=== PATIENT | female | born 1945 | race Caucasian/White ===

== ENCOUNTER → 2016-04-11 | Outpatient (CLI) | payer OTHER ==
[2016-04-11 12:59] LABS: ALT/SGPT 26 U/L (12-78); BLOOD UREA NITROGEN 18 mg/dl (7-18); BUN/CREATININE RATIO 21.9 (10-20); CALCIUM 9.4 mg/dl (8.5-10.1); CARBON DIOXIDE 27 mmol/L (21-32); CHLORIDE 106 mmol/L (98-107); CHOLESTEROL 264 mg/dl (0-200); CREATININE 0.84 mg/dl (0.60-1.20); GLUCOSE 109 mg/dl (70-99); SODIUM 143 mmol/L (136-145); TRIGLYCERIDES 140 mg/dl (0-150); VERY LOW DENSITY LIPOPROT CALC 28 mg/dl
[2016-04-11 13:04] LABS: ALKALINE PHOSPHATASE 62 U/L (45-117); AST/SGOT 18 U/L (15-37); CHOLESTEROL/HDL RATIO 3.9; HDL CHOLESTEROL 67 mg/dl; LDL CHOLESTEROL CALCULATED 169 mg/dl
--- NOTE | 2016-04-16 10:28 | CODING QUERY MEDICAL NECESSITY ---
SUPPORTING DIAGNOSIS NEEDED A supporting diagnosis is required for the test/procedure performed on this patient in order for us to be reimbursed by the patient's insurance. Please provide a supporting diagnosis for the following test/procedure listed below next to the test name along with your signature. *If there is no additional diagnosis for this patient that would support the following test/procedure please document that below next to the test/procedure. Test(s)/Procedure(s) that require a supporting diagnosis: * VITAMIN D 25-HYDROXY DIAGNOSIS: * DOS: 04/11/16 Provider Signature: Date: Thank you Selina Sutton Health Information Management Once completed, please kindly fax back to [phone] For questions please call [phone]
== END | disposition home or self-care (01) ==
LOC: C.LABPVFM 08:01
PROVIDERS: ATTEND Family Medicine
DX: E78.5 Hyperlipidemia, unspecified (principal); R73.01 Impaired fasting glucose; R03.0 Elevated blood-pressure reading, without diagnosis of hypertension; M25.50 Pain in unspecified joint; Z13.21 Encounter for screening for nutritional disorder; E55.9 Vitamin D deficiency, unspecified

== ENCOUNTER → 2016-07-15 | Outpatient (CLI) | payer OTHER ==
[2016-07-15 18:07] LABS: BLOOD UREA NITROGEN 18 mg/dl (7-18); CREATININE 0.86 mg/dl (0.60-1.20)
[2016-07-16 06:17] LABS: ESTIMATED AVERAGE GLUCOSE 128 mg/dl; HA1C FLAG Normal (Normal)
== END | disposition home or self-care (01) ==
LOC: C.LABPVFM 16:00
PROVIDERS: ATTEND Family Medicine
DX: H91.8X1 Other specified hearing loss, right ear (principal); R73.9 Hyperglycemia, unspecified

== ENCOUNTER → 2016-07-24 | Outpatient (CLI) | payer OTHER ==
[~2016-07-24] MED LIST: GADAVIST IV PRN
--- NOTE | 2016-07-24 14:19 | DIAGNOSTIC IMAGING REPORT ---
Brain and internal auditory canal MRI WITH AND WITHOUT CONTRAST HISTORY: WITH IAC, ASYMMETRICAL HEARING LOSS OF R EAR TECHNIQUE: Multiplanar multisequence MRI of the brain and internal auditory canals were performed both before and after the intravenous administration of contrast. COMPARISON STUDY: None. FINDINGS: There is no mass, hematoma, midline shift, or acute infarct. Small retention cyst within the left maxillary sinus. The ventricles and sulci demonstrate mild age-related involutional changes. Scattered foci of T2 hyperintensity seen within the periventricular and subcortical white matter are nonspecific but suggestive of mild microvascular ischemic changes. The major vascular flow voids at the skull base are well-maintained. No abnormal enhancement or masses within the bilateral internal auditory canals. Small amount fluid within the bilateral mastoid air cells. The middle ear cavities appear patent. IMPRESSION: 1. No acute intracranial abnormality. 2. Normal bilateral internal auditory canals. 3. Small bilateral mastoid effusions. Electronically signed by: Angel Horne M.D. 07/24/2016 2:17 PM Dictated Date/Time: 07/24/2016 2:09 PM
== END | disposition home or self-care (01) ==
LOC: C.OPENMRI 12:41
PROVIDERS: ATTEND Physician Assistant
DX: H91.91 Unspecified hearing loss, right ear (principal)

== ENCOUNTER → 2016-11-06 | Outpatient (CLI) | payer OTHER ==
[2016-11-06 13:10] LABS: ALT/SGPT 35 U/L (12-78); AST/SGOT 31 U/L (15-37); BLOOD UREA NITROGEN 10 mg/dl (7-18); BUN/CREATININE RATIO 13.2 (10-20); CALCIUM 9.1 mg/dl (8.5-10.1); CARBON DIOXIDE 25 mmol/L (21-32); CHLORIDE 108 mmol/L (98-107); CREATININE 0.79 mg/dl (0.60-1.20); GLUCOSE 98 mg/dl (70-99); POTASSIUM 3.8 mmol/L (3.5-5.1); SODIUM 140 mmol/L (136-145)
[2016-11-06 13:11] LABS: ALB/GLOB RATIO 1.2 (0.9-2); ALKALINE PHOSPHATASE 60 U/L (45-117); CHOLESTEROL 201 mg/dl (0-200); CHOLESTEROL/HDL RATIO 3.1; HDL CHOLESTEROL 64 mg/dl; LDL CHOLESTEROL CALCULATED 121 mg/dl; TRIGLYCERIDES 81 mg/dl (0-150); VERY LOW DENSITY LIPOPROT CALC 16 mg/dl
== END | disposition home or self-care (01) ==
LOC: C.LABPVFM 07:34
PROVIDERS: ATTEND Family Medicine
DX: E78.5 Hyperlipidemia, unspecified (principal); R73.9 Hyperglycemia, unspecified

== ENCOUNTER → 2016-12-05 | Outpatient (CLI) | payer OTHER | END | disposition home or self-care (01) | LOC: C.PAPS 13:31 | PROVIDERS: ATTEND Family Medicine | DX: Z12.4 Encounter for screening for malignant neoplasm of cervix (principal) ==

== ENCOUNTER → 2017-02-28 | Outpatient (CLI) | payer OTHER ==
--- NOTE | 2017-02-28 16:44 | DIAGNOSTIC IMAGING REPORT ---
MRI THE RIGHT KNEE NO CONTRAST CLINICAL HISTORY: RIGHT KNEE PAIN COMPARISON STUDY: No previous studies for comparison. FINDINGS: Imaging was performed in the sagittal, coronal, and axial planes. There is a moderate suprapatellar joint effusion. There is anterior subcutaneous edema. The anterior and posterior cruciate ligaments appear intact. The medial and lateral collateral ligaments appear intact. The patellar retinacular structures appear intact. No tears of the lateral meniscus are visualized. There is medial extrusion of the medial meniscus. There is a complex tear involving the posterior horn of the medial meniscus. There is a medial meniscal cyst. There is chondrosis involving the medial joint compartment. There is mild chondromalacia patella. IMPRESSION: 1. Moderate suprapatellar joint effusion 2. Complex tear involving the posterior horn the medial meniscus 3. Chondrosis involving the medial joint compartment 4. No evidence of cruciate or collateral ligament disruption Electronically signed by: Devendra Fisher M.D. 02/28/2017 4:42 PM Dictated Date/Time: 02/28/2017 4:37 PM
== END | disposition home or self-care (01) ==
LOC: C.MRIBC 15:40
PROVIDERS: ATTEND Orthopaedic Surgery
DX: M25.561 Pain in right knee (principal); M25.461 Effusion, right knee; S83.231A Complex tear of medial meniscus, current injury, right knee, initial encounter; X58.XXXA Exposure to other specified factors, initial encounter; M94.261 Chondromalacia, right knee

== ENCOUNTER → 2017-06-03 | Outpatient (CLI) | payer OTHER ==
[2017-06-03 14:27] LABS: ALBUMIN 3.7 gm/dl (3.4-5.0); ALT/SGPT 27 U/L (12-78); BLOOD UREA NITROGEN 22 mg/dl (7-18); CALCIUM 9.3 mg/dl (8.5-10.1); CARBON DIOXIDE 28 mmol/L (21-32); CHOLESTEROL 186 mg/dl (0-200); GLUCOSE 101 mg/dl (70-99); POTASSIUM 3.9 mmol/L (3.5-5.1); SODIUM 140 mmol/L (136-145)
[2017-06-03 14:30] LABS: ALKALINE PHOSPHATASE 67 U/L (45-117); AST/SGOT 18 U/L (15-37); LDL CHOLESTEROL CALCULATED 99 mg/dl; TOTAL PROTEIN 6.9 gm/dl (6.4-8.2)
== END | disposition home or self-care (01) ==
LOC: C.LABPVFM 07:29
PROVIDERS: ATTEND Family Medicine
DX: E78.5 Hyperlipidemia, unspecified (principal); R73.01 Impaired fasting glucose; E55.9 Vitamin D deficiency, unspecified

== ENCOUNTER → 2017-06-24 | Outpatient (CLI) | payer OTHER ==
[~2017-06-24] MED LIST changes: +CHOL20009 PO; +FEXO1TAB49 PO; -GADAVIST IV PRN; +SIMV10TA2 PO
--- NOTE | 2017-06-25 15:45 | MAMMOGRAPHY REPORT ---
BILATERAL DIGITAL SCREENING MAMMOGRAM TOMOSYNTHESIS WITH CAD: 06/24/2017 CLINICAL HISTORY: Routine screening. Patient has no complaints. TECHNIQUE: Breast tomosynthesis in addition to standard 2D mammography was performed. Current study was also evaluated with a Computer Aided Detection (CAD) system. COMPARISON: Comparison is made to exams dated: 03/20/2015 mammogram, 03/18/2014 mammogram, 03/17/2013 m ammogram, 03/13/2012 mammogram, 03/08/2011 mammogram, and 03/07/2010 mammogram - [facility] enter. BREAST COMPOSITION: There are scattered areas of fibroglandular density in both breasts. FINDINGS: There are benign vascular calcifications in both breasts. No suspicious mass, architectur al distortion or cluster of microcalcifications is seen. IMPRESSION: ACR BI-RADS CATEGORY 2: BENIGN There is no mammographic evidence of malignancy. A 1 year screening mammogram is recommended. The pa tient will receive written notification of the results. Approximately 10% of breast cancers are not detected with mammography. A negative mammographic report should not delay biopsy if a clinically suggestive mass is present. Sylvia Perez M.D. ay/:06/24/2017 16:19:43 Bilingual Customer Service Specialist: Saida Benson, [facility] letter sent: Normal 1/2 BI-RADS Code: ACR BI-RADS Category 2: Benign
== END | disposition home or self-care (01) ==
LOC: C.MAMM 14:30
PROVIDERS: ATTEND Family Medicine
DX: Z12.31 Encounter for screening mammogram for malignant neoplasm of breast (principal)

== ENCOUNTER → 2017-07-03 | Day surgery (SDC) | payer OTHER ==
[2017-06-24 08:34] VITALS: Ht 160 cm; Wt 72.7 kg
[~2017-07-03] VITALS: Ht 160 cm; Wt 72.7 kg
[~2017-07-03] MED LIST changes: +ATROPINE SULFATE 0.1 MG/ML 5ML SYR IV PRN; +CEFAZOLIN 2000MG IV PUSH 15 ML IV SCH; +DEXAMETHASONE SOD INJ 4 MG/ML VIAL ONE; +EpHEDrine SULFATE INJ 50 MG/ML AMP IV PRN; +EpINEphrine INJ 1MG/ML AMP 1 MG/ML AMP ONE; +FENTANYL CITRATE INJ 50 MCG/1 ML 2 ML VIAL ONE; +HYDR-5688 PO; +HYDROCODONE/ACETAMIN 5/325MG TAB PO PRN; +KETOROLAC TROMETHAMINE 30 MG/ML VIAL ONE; +LABETALOL HCL IV 5 MG/ML 20ML ONE; +LIDOCAINE HCL 2% 2 ML VIAL (20MG/ML) ONE; +ONDANSETRON INJ 2 MG/ML 2 ML VIAL IV PRN; +ONDANSETRON INJ 2 MG/ML 2 ML VIAL ONE; +PROPOFOL IV EMULSION 10 MG/ML 20 ML VIAL ONE; +ROPIVACAINE 0.5% 5 MG/ML 30 ML VIAL ONE; +SODIUM CHLORIDE 0.9% 1000ML 1,000 ML IV SCH
[2017-07-03] MEDS: LACTATED RINGER'S 1000ML 1,000 ML IV SCH ×2 (12:13→14:43)
--- NOTE | 2017-07-03 12:27 | History & Physical Bridge - [place] ---
H&P Re-Evaluation Bridge Note: I have examined the patient, reviewed the History & Physical and in the interval since the performance of the History & Physical I have noted the following changes of clinical significance: No changes noted
--- NOTE | 2017-07-03 13:55 | Discharge Instructions-SurgCtr ---
Discharge Instructions Date of Service July 03, 2017. Visit Reason for Visit: Right Knee Osteoarthritis, Pain Discharge Discharge Diagnosis / Problem: SAME ABOVE Discharge Goals Goal(s): Decrease discomfort, Improve function Medications Stopped Medications Name(s): No NSAIDs Activity Recommendations Activity Limitations: as noted below Lifting Limitations: gradually increase as tolerated Exercise/Sports Limitations: gradually increase as tolerated Shower/Bathe: tomorrow Anesthesia . Post Anesthesia Instructions: If you have had General Anesthesia or IV Sedation: * Do not drive today. * Resume driving when surgeon permits. * Do not make important decisions or sign legal documents today. * Call surgeon for: 1. Temperature elevations greater than 101 degrees F. 2. Uncontrollable pain. 3. Excessive bleeding. 4. Persistent nausea and vomiting. 5. Medication intolerance (nausea, vomiting or rash). * For nausea and vomiting use only clear liquids such as: tea, soda, bouillon until nausea subsides, then gradually increase diet as tolerated. * If you have any concerns or questions, call your surgeon's office. If physician is unavailable and it is an emergency, call 911 or go to the nearest emergency room. . Instructions / Follow-Up Instructions / Follow-Up MEDICATIONS: * Resume previous medications unless instructed otherwise by your surgeon. * Always take pain medication on a full stomach or with food to avoid upset stomach. * Do not drink alcohol or drive while taking narcotics. * Ibuprofen or Tylenol may be taken if narcotic not needed. SPECIAL CARE INSTRUCTIONS: __ None _X_ Keep extremity elevated and iced x 48 hours; apply ice 20-30 minutes 8-10 times/day. May remove at night. _X_ Crutches _X_ May discard when able __ Brace/Post-op shoe __ 24 hrs/day __ Remove at night _X_ Dressing __ Maintain until seen in office, may shower with plastic over site _X_ Remove dressings in 24-48 hours and then may shower _X Cover incisions with band-aids after showering __ Do not remove steri-strips Call physician if chills or temperature rises above 102 degrees or pain unrelieved by prescribed pain medications. Office [phone] Diet Recommendations Home Diet: no limitations Fluid Restriction: None Pending Studies Studies pending at discharge: no Medical Emergencies . Who to Call and When: Medical Emergencies: If at any time you feel your situation is an emergency, please call 911 immediately. . Non-Emergent Contact Non-Emergency issues call your: Primary Care Provider Call Non-Emergent contact if: you have a fever, temperature is above 101.5 . . "Provider Documentation" section prepared by Maurisio March. .
--- NOTE | 2017-07-03 14:20 | [facility] Post Operative Brief Note ---
Immediate Operative Summary Operative Date July 03, 2017. Pre-Operative Diagnosis Right Knee Chondromalacia and Meniscus Tear Post-Operative Diagnosis Same Procedure(s) Performed Right Knee Arthroscopy With Partial Medial Meniscectomy, Chondroplasty Surgeon Dr. Christy Aldana Circular Knitter Helper Surgeon(s) Mathew March Estimated Blood Loss 5 cc Findings Consistent with Post-Op Diagnosis Specimens None Anesthesia Type General Complication(s) none Disposition Disposition: Recovery Room / PACU
--- NOTE | 2017-07-03 14:42 | OPERATIVE REPORT ---
DATE OF OPERATION: 07/03/2017 PREOPERATIVE DIAGNOSIS: Medial meniscus tear of the right knee with chondromalacia. 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 PROCEDURE: Right knee diagnostic arthroscopy with chondroplasty and partial medial meniscectomy. SURGEON: Dr. Mitchell Aldana. TUBE AND MANIFOLD BUILDER: Maurisio March PA-C, whose assistance was necessary for positioning of the knee and helping with instrumentation. ANESTHESIA: General. COMPLICATIONS: None. CONDITION: Stable to PACU. INDICATIONS: Narda is a pleasant 71-year-old female who has been having a 5-month history of right knee pain. X-rays and MRI were diagnostic for medial meniscus tear of the knee with some mild chondromalacia. After failing conservative treatment, she elected to undergo arthroscopy. OPERATION AND FINDINGS: On 07/03/2017, she arrived at [facility] for the above procedure. She was seen in the preoperative holding area and the operative extremity was identified and signed. She was given a preoperative antibiotic, taken back to the operating room, laid on table in supine position and put under general anesthesia. The right knee was prepped and draped in sterile fashion. Time-out was done. The patient and operative extremity was properly identified. A scope was introduced in the lateral parapatellar portal. Diagnostic arthroscopy showed no loose bodies in the suprapatellar pouch. There was some grade 3 chondral wear on the trochlea and the undersurface of patella. The patella tracked in the center of the trochlea. The scope was brought into the medial compartment. There were some grade 2 chondral changes off the distal medial femoral condyle. The tibial plateau looked okay. A medial parapatellar portal was made under direct visualization. There was radial tear of the posterior aspect of the medial meniscus. A shaver and ablator were used to remove the unstable bits of meniscus tissue. Multiple arthroscopic images were taken. A shaver was also used to complete an acromioplasty of the distal medial femoral condyle. The scope was brought into the trochlea. ACL and PCL were intact. The scope was brought into the lateral compartment. There were some grade 4 chondral changes on the lateral tibial plateau. There were also small loose body chunks of cartilage underneath the lateral meniscus. These were removed with a shaver and a chondroplasty was completed off the lateral tibial plateau. The distal lateral femoral condyle looked okay. The lateral meniscus was intact. The knee was brought into full extension. A shaver was used to do a chondroplasty of the patellofemoral joint and remove any incarcerated fat pad. The scope was then placed in the contralateral portal and repeat diagnostic arthroscopy showed no additional pathology. Multiple pictures were taken. Arthroscopic instruments were removed from the knee. Portal sites were closed with 3-0 nylon. The knee was injected with 30 mL of Naropin with epinephrine and Toradol. She was then placed in a soft compressive dressing, extubated, transferred to a [facility] and taken to the postanesthesia care unit in stable condition. She tolerated the procedure well. I attest to the content of the Intraoperative Record and any orders documented therein. Any exception s are noted below.
[2017-07-03] MEDS: FENTANYL CITRATE INJ 50 MCG/1 ML 2 ML VIAL IV PRN ×3 (14:49→15:25)
[2017-07-03 15:42] VITALS: TEMP 36.2
--- NOTE | 2017-07-03 15:58 | Anesthesia Progress Nt - [facility] ---
Anesthesia Post Op Note Date & Time July 03, 2017 at 15:57 Vital Signs Pain Intensity: 3 Vital Signs Past 12 Hours Date Time Temp Pulse Resp B/P (MAP) Pulse Ox O2 Delivery O2 Flow Rate FiO2 07/03/17 15:34 36.4 72 14 153/95 98 Room Air 07/03/17 15:34 69 8 96 07/03/17 15:34 70 8 07/03/17 15:31 153/95 07/03/17 15:29 69 15 94 07/03/17 15:29 69 15 07/03/17 15:25 173/83 07/03/17 15:24 67 14 97 07/03/17 15:24 68 14 07/03/17 15:23 69 12 07/03/17 15:23 66 12 97 07/03/17 15:21 182/84 07/03/17 15:18 68 14 07/03/17 15:18 66 14 97 07/03/17 15:16 133/99 07/03/17 15:13 63 12 98 07/03/17 15:13 64 12 07/03/17 15:10 178/84 07/03/17 15:08 69 6 07/03/17 15:08 69 6 97 07/03/17 15:06 167/93 07/03/17 15:03 66 12 07/03/17 15:03 66 12 96 07/03/17 15:01 167/94 07/03/17 14:59 175/93 07/03/17 14:58 72 16 96 07/03/17 14:58 72 16 07/03/17 14:56 175/93 07/03/17 14:53 69 10 100 07/03/17 14:53 70 10 07/03/17 14:51 170/90 07/03/17 14:48 68 19 100 07/03/17 14:48 69 19 07/03/17 14:47 68 8 07/03/17 14:47 66 8 100 07/03/17 14:46 166/87 07/03/17 14:43 159/89 07/03/17 14:42 67 13 07/03/17 14:42 67 13 100 07/03/17 14:41 159/89 07/03/17 14:37 64 10 100 07/03/17 14:37 64 10 07/03/17 14:36 163/82 07/03/17 14:32 67 15 07/03/17 14:32 66 15 100 07/03/17 14:31 65 15 07/03/17 14:31 66 15 100 07/03/17 14:30 184/85 07/03/17 14:27 162/84 07/03/17 14:26 36.1 65 14 162/84 98 Mask 6 07/03/17 14:26 67 98 07/03/17 14:26 67 07/03/17 11:37 36.8 70 18 138/79 (98) 98 Room Air Notes Mental Status: alert / awake / arousable, participated in evaluation Pt Amnestic to Procedure: Yes Nausea / Vomiting: adequately controlled Pain: adequately controlled Airway Patency, RR, SpO2: stable & adequate BP & HR: stable & adequate Hydration State: stable & adequate Anesthetic Complications: no major complications apparent
[2017-07-03 16:16] VITALS: BP 156/82; PULSE 70; O2SAT 99
== END | disposition home or self-care (01) ==
LOC: X.SURG 11:11
PROVIDERS: ATTEND Orthopaedic Surgery
DX: S83.241A Other tear of medial meniscus, current injury, right knee, initial encounter (principal); X58.XXXA Exposure to other specified factors, initial encounter; M94.261 Chondromalacia, right knee; M19.90 Unspecified osteoarthritis, unspecified site; Z85.820 Personal history of malignant melanoma of skin; Z80.0 Family history of malignant neoplasm of digestive organs

== ENCOUNTER 2023-03-11 21:54 | Inpatient (IN) ==
[2023-03-11] MEDS ORDERED: ASPIRIN 81 MG CHEW PO STA (22:23)
[2023-03-11 22:33] LABS: Basophils # (auto) 0.07 K/uL (0.00-0.20); Basophils % (auto) 0.5 %; Eosinophils # (auto) 0.02 K/uL (0.00-0.50); Eosinophils % (auto) 0.2 %; Hematocrit (blood only) 42.9 % (37.0-47.0); Hemoglobin 13.9 g/dl (12.0-16.0); Immature Granulocytes # (auto) 0.39 K/uL (0.01-0.20); Lymphocytes # (auto) 2.58 K/uL (1.20-3.40); Lymphocytes % (auto) 19.6 %; Mean Corpuscular Hgb Conc 32.4 g/dL (32.0-36.0); Mean Corpuscular Volume 89.6 fL (80.0-100.0); Mean Platelet Volume 9.5 fL (9.4-12.4); Monocytes # (auto) 1.09 K/uL (0.11-0.59); Monocytes % (auto) 8.3 %; Neutrophils # (auto) 9.03 K/uL (1.40-6.50); Neutrophils % (auto) 68.4 %; Platelet Count 379 K/uL (130-400); RDW Coefficient of Variation 12.9 % (11.5-14.5); RDW Standard Deviation 42.2 fL (36.4-46.3); Red Blood Count 4.79 M/uL (4.20-5.40); White Blood Count 13.18 K/ul (4.8-10.8)
--- NOTE | 2023-03-11 22:41 | Emergency Department Note ---
Impression & Plan Non-ST elevation [place] (NSTEMI), Hypertensive urgency ED Provider Note Provider: Danilo Garcia MD DATE OF SERVICE: 03/11/2023 CHIEF COMPLAINT: Chest discomfort HISTORY OF PRESENT ILLNESS: Patient is a 77-year-old female history of GERD, sinusitis, and hyperlipidemia on Zetia presenting here today stating she can experience some chest heaviness this evening. Around 4 PM was arranging some dee at her bahai and began experiencing heaviness. Told her and decided to go home for dinner. Resting the symptoms away fairly quickly. Around 7 PM after supper the patient began to experience central chest heaviness. This resolved while being triaged here in the emergency department and thus lasted several hours. No radiation of the neck, jaw, back, or shoulders. Denies any abdominal pain or nausea. Did state that she felt like she had to belch a little bit and took her Rolaids which did not change the pain but she does not feel like she has gas. No history of similar pain. No cardiac history. No history of stress test. Denies feeling lightheaded currently. Again chest heaviness has resolved at this time. States blood pressure normally well-controlled in the 130s to 140s. Does not feel short of breath. Has been dealing with sinus issues of the past 3 to 4 weeks. Is on prednisone and doxycycline. Has not improved much in terms of sinus congestion with this. PAST MEDICAL HISTORY: As noted above MEDICATIONS: Reviewed home medications not on aspirin SOCIAL HISTORY: , non-smoker PHYSICAL EXAM: GENERAL: alert and oriented in no acute distress on stretcher Head: normocephalic and atraumatic EYES: No injection, discharge or icterus. NECK: Trachea midline. ENT: Mucous membranes pink and moist. LUNGS: Airway patent. No retractions. Breath sounds clear with good air entry bilaterally. HEART: Regular rate and rhythm. No chest wall tenderness ABDOMEN: Soft and non-tender, without guarding or rebound. SKIN: Acyanotic, warm, dry, without rashes EXTREMITIES: Without swelling, tenderness or deformity NEUROLOGICAL: No focal deficits. No aphasia. No facial droop or slurred speech. Ambulatory. EK bpm normal sinus rhythm. No PVC or PAC. No acute ST segment elevation or depression with nonspecific T wave changes in aVL with a QTc of 398. Right axis. CONTINUOUS CARDIAC MONITORING: was ordered and showed a heart rate of 60s to 70s bpm in normal sinus rhythm 1 view chest x-ray per my interpretation: No evidence of significant pneumonia. No pleural effusions or pulmonary edema. Normal cardiac silhouette. No free under the diaphragm. Patient's laboratory studies and imaging reviewed. Differential includes Cardiac ischemia, aortic dissection, pulmonary embolism, pneumothorax, pneumonia, pericarditis, myocarditis, esophageal rupture, GERD, cholecystitis, pancreatitis, musculoskeletal, URI, sinusitis as well as other pathologies. IMPRESSION/MEDICAL DECISION MAKING: EKG without obvious evidence of STEMI. Chest heaviness has resolved. Does have a concerning story and risk factors with her age history of hyperlipidemia. Significant hypertensive but not having significant back pain. Lower suspicion for dissection. No significant GI symptoms or nausea or vomiting. Has been on steroid and this maybe contributing somewhat to the elevated blood pressure as well as stress. Will monitor before aggressive treatment. Given her resolution of chest heaviness we will hold on nitro initially. Leukocytosis on blood work likely reactive to this and I doubt systemic infection or sepsis. Afebrile here. Does not appear meningitic. Denies significant respiratory symptoms and doubt pneumonia. No significant anemia on blood work. Respiratory viral panel sent given her sinus complaints. Will give her dose of aspirin here 324mg. Troponin was sent. Troponin does return elevated 122. Blood pressure trends down some but still in the 180s over 90s systolic. Will start on heparin drip given the elevation although again pain-free at this time. Discussed with her need to stay for further cardiac evaluation. Hospitalist contacted. Discussed with hospitalist possible medications to use for further blood pressure control 1 to be cautious given her relative bradycardia with a heart rate in the 60s in relation to labetalol. Discussed with hospitalist and given a small dose of oral hydralazine and discussion. Patient again pain-free. Will be admitted for further cardiac evaluation. DIAGNOSIS: NSTEMI, chest pain DISPOSITION: Hospitalist will evaluate Patient was agreeable with this plan. Critical Care I have personally spent 36 minutes of critical care time in the direct management of this patient. This includes bedside care, interpretation of diagnostic studies, and testing, discussion with consultants, patient, and family members, and other required patient management activities. These 36 minutes is in excess of all separately billable procedures. Past Med/Surg History Medical History Abscess Hyperlipidemia Cervical spondylosis H/O Malignant melanoma Hx of adenomatous colonic polyps Prehypertension SNHL (sensorineural hearing loss) Surgical History H/O removal of cyst History of colonoscopy History of Mohs micrographic surgery for skin cancer History of tonsillectomy History of arthroscopy of both knees History of section Family History Mother Colorectal cancer Denies family history of Ovarian cancer Prostate cancer Myocardial infarction Breast cancer Social History Smoking Status: Never smoker Second Hand Exposure: No; Do You Dip or Chew Tobacco: No; Hx Alcohol Use: Yes Alcohol type: beer Alcohol Intake Frequency: 2-4 x/Month Hx Substance Use: No Preferred Language: [place] Island[place] Communication Ability: Effective Visual Impairment: Limited Hearing Ability: Use of Hearing Aid Drop Wirer Required: No Beliefs That Will Affect Care: None marital status: Current Living Situation: Spouse current occupational status: retired How many Children do You have: 1 Feels Safe at Home: Yes Childhood Exposure to Second-Hand Smoke: Yes Diet: regular caffeine: Yes during the past year weight has: remained stable Dental Care, Regularly: Yes Physical Activity Frequency: Does not Exercise Seatbelt Use: always Sunscreen Use: Yes Do you think of yourself as: straight/heterosexual Gender Identity: Female Assistive Devices: Glasses and Hearing Aid - Bilateral Allergies Allergies Allergy/AdvReac Type Severity Reaction Status Date / Time [id number] Reductase AdvReac Severe Joint Pain Verified 03/06/23 12:51 Inhibitor Home Meds Home Medications Medication Instructions Recorded Confirmed fexofenadine 180 mg tablet 180 mg PO DAILY PRN seasonal 01/26/19 03/11/23 (Allergy Relief (fexofenadine)) allergies ascorbate calcium (vitamin C) 500 500 mg PO QAM 11/08/22 03/11/23 mg tablet cholecalciferol (vitamin D3) 125 125 mcg PO QAM 11/08/22 03/11/23 mcg (5,000 unit) capsule ezetimibe 10 mg tablet (Zetia) 10 mg PO QAM 11/08/22 03/11/23 Previous Rx's Medication Instructions Recorded doxycycline hyclate 100 mg tablet 100 mg PO BID 7 days #14 tabs 03/06/23 prednisone 20 mg tablet See Rx Instructions PO .COMPLEX 03/06/23 #30 tabs Results & Data (ED) Vital Signs Vital Signs - 24 hr 03/11/23 22:02 03/11/23 22:16 03/11/23 22:16 Temperature 36.6 C Temperature Source Temporal Artery Scan Pulse Rate 79 Respiratory Rate 14 Respiratory Effort / Characteristics Non-Labored Spontaneous Respiratory Depth Normal Blood Pressure 214/124 H Blood Pressure Mean 154 Pulse Oximetry 97 Oxygen Delivery Method Room Air Room Air Room Air Sepsis Recent Fever Within 48 Hours No Sepsis New/Unexplained Change in Mental Status No Sepsis Action Taken by Nursing No Action Required 03/11/23 22:16 Temperature Temperature Source Pulse Rate Respiratory Rate Respiratory Effort / Characteristics Non-Labored Respiratory Depth Normal Blood Pressure Blood Pressure Mean Pulse Oximetry Oxygen Delivery Method Sepsis Recent Fever Within 48 Hours Sepsis New/Unexplained Change in Mental Status Sepsis Action Taken by Nursing Laboratory Data 03/11/23 22:10 03/11/23 22:10 Lab Results 03/11/23 Range/Units 22:10 WBC 13.18 H (4.8-10.8) K/ul RBC 4.79 (4.20-5.40) M/uL Hgb 13.9 (12.0-16.0) g/dl Hct 42.9 (37.0-47.0) % MCV 89.6 (80.0-100.0) fL MCH 29.0 (25.0-34.0) pg MCHC 32.4 (32.0-36.0) g/dL RDW Std Deviation 42.2 (36.4-46.3) fL RDW Coeff of [place] 12.9 (11.5-14.5) % Plt Count 379 (130-400) K/uL MPV 9.5 (9.4-12.4) fL Immature Gran % (Auto) 3.0 % Neut % (Auto) 68.4 % Lymph % (Auto) 19.6 % Boyle % (Auto) 8.3 % Eos % (Auto) 0.2 % Baso % (Auto) 0.5 % Neut # (Auto) 9.03 H (1.40-6.50) K/uL Lymph # (Auto) 2.58 (1.20-3.40) K/uL Boyle # (Auto) 1.09 H (0.11-0.59) K/uL Eos # (Auto) 0.02 (0.00-0.50) K/uL Baso # (Auto) 0.07 (0.00-0.20) K/uL Immature Gran # (Auto) 0.39 H (0.01-0.20) K/uL PT 10.3 (9.0-12.0) Seconds INR 0.9 (0.9-1.1) APTT 23 (21-31) Seconds PTT Ratio 0.8 Sodium 138 (136-145) mmol/L Potassium 4.3 (3.5-5.1) mmol/L Chloride 104 (98-107) mmol/L Carbon Dioxide 27 (21-32) mmol/L Anion Gap 7 (3-11) BUN 25 H (6-23) mg/dl Creatinine 0.88 (0.6-1.2) mg/dl Est Cr Clr Drug Dosing 59.2 ml/min Est GFR ( Amer) 73.5 ml/min Est GFR (Non-Af Amer) 63.4 ml/min BUN/Creatinine Ratio 28.4 H (10-20) Glucose 193 H (70-99(Fasting)) mg/dl Calcium 10.0 (8.6-10.3) mg/dl Total Bilirubin 0.3 (0.2-1.0) mg/dl AST 13 (13-39) U/L ALT 15 (7-52) U/L Alkaline Phosphatase 66 (34-104) U/L Troponin I High Sens 122.0 H* (0-14) pg/ml Total Protein 7.4 (6.0-8.3) gm/dl Albumin 3.9 (3.4-5.0) gm/dl Globulin 3.5 (2.5-4.0) gm/dl Albumin/Globulin Ratio 1.1 (0.9-2) Lipase 30 (11-82) U/L Administered Medications Heparin Sodium (Porcine) (Heparin Sod (Porcine) 1000 Unit/Ml) 4,000 units IV NOW ONE Stop: 03/11/23 23:31 Last Admin: 03/11/23 23:35 Dose: 4,000 units Documented By: AEF Co-signed By: JAMES Heparin Sodium/Dextrose (Heparin Sodium/Dextrose) 25,000 units in 500 mls @ 17 mls/hr IV .Q24H CATRINA; Protocol Stop: 04/10/23 23:44 Last Admin: 03/11/23 23:35 Dose: 850 units/hr, 17 mls/hr Documented By: AEF Co-signed By: JAMES Discontinued Medications Aspirin (Aspirin 81 Mg Chew) 324 mg PO NOW STA Stop: 03/11/23 22:24 Last Admin: 03/11/23 22:28 Dose: 324 mg Documented By: AEF Heparin Sodium/Dextrose (Heparin Iv Adult Wt-Based Low-Dose W/ Initial Bolus Protocol) 1 each IV NOW STA; Protocol Stop: 03/11/23 23:16 Last Admin: 03/11/23 23:36 Dose: Not Given Documented By: AEF Discharge Plan Visit Data Chief Complaint: Chest Pain Stated Complaint: CHEST PAIN, HIGH BP ED Provider: Danilo Garcia Discharge Problem: Non-ST elevation [place] (NSTEMI), Hypertensive urgency Patient Disposition: Being Evaluated by Hospitalist Forms Stand Alone Forms: My [facility] Prescriptions Prescriptions: No Action prednisone 20 mg tablet See Rx Instructions PO .COMPLEX Qty: 30 0RF Rx Instructions: 3 tabs PO daily X 5 days, then 2 tabs PO daily X 5 days, then 1 tab PO daily X 5 days, then stop. doxycycline hyclate 100 mg tablet 100 mg PO BID 7 Days Qty: 14 0RF fexofenadine [Allergy Relief (fexofenadine)] 180 mg tablet 180 mg PO DAILY PRN (Reason: seasonal allergies) cholecalciferol (vitamin D3) 125 mcg (5,000 unit) capsule 125 mcg PO QAM ascorbate calcium (vitamin C) 500 mg tablet 500 mg PO QAM ezetimibe [Zetia] 10 mg tablet 10 mg PO QAM Referrals Referrals: Eleanor Bledsoe MD [Primary Care Provider] -
[2023-03-11 22:52] LABS: Albumin Globulin Ratio 1.1 (0.9-2); Albumin Level 3.9 gm/dl (3.4-5.0); BUN Creatinine Ratio 28.4 (10-20); Bilirubin,Total 0.3 mg/dl (0.2-1.0); Creatinine Clr Calc Pharmacy 59.2 ml/min; Est GFR (African American) 73.5 ml/min; Est GFR (Non-African American) 63.4 ml/min; Globulin 3.5 gm/dl (2.5-4.0); Potassium 4.3 mmol/L (3.5-5.1); Total Protein 7.4 gm/dl (6.0-8.3)
[2023-03-11 23:05] LABS: INR 0.9 (0.9-1.1); Partial Thromboplastin Ratio 0.8; Partial Thromboplastin Time 23 Seconds (21-31); Prothrombin Time 10.3 Seconds (9.0-12.0)
[2023-03-11] MEDS ORDERED: Heparin IV Adult Wt-Based Low-Dose w/ INITIAL Bolus Protocol IV STA (23:15)
[2023-03-11] MEDS ORDERED: HEPARIN SOD (PORCINE) 1000 UNIT/ML IV ONE ×2 (23:30→23:32)
[2023-03-11] MEDS ORDERED: hydrALAZINE 10 MG TAB PO ONE (23:33)
[2023-03-11] MEDS ORDERED: HEPARIN SODIUM/DEXTROSE 25,000 UNITS/500 ML BAG IV SCH (23:45)
[2023-03-12 00:14] LABS: Adenovirus PCR Not Detected (NotDetected); Bordetella parapertussis PCR Not Detected (NotDetected); Bordetella pertussis PCR Not Detected (NotDetected); Chlamydia pneumoniae PCR Not Detected (NotDetected); Coronavirus 229E PCR Not Detected (NotDetected); Coronavirus CoV-2 (COVID19)PCR Not Detected (NotDetected); Coronavirus HKU1 PCR Not Detected (NotDetected); Coronavirus NL63 PCR Not Detected (NotDetected); Coronavirus OC43PCR Not Detected (NotDetected); Human Metapneumovirus PCR Not Detected (NotDetected); Influenza A PCR Not Detected (NotDetected); Influenza B PCR Not Detected (NotDetected); Mycoplasma pneumoniae PCR Not Detected (NotDetected); Parainfluenza Virus 1 PCR Not Detected (NotDetected); Parainfluenza Virus 2 PCR Not Detected (NotDetected); Parainfluenza Virus 3 PCR Not Detected (NotDetected); Parainfluenza Virus 4 PCR Not Detected (NotDetected); Respiratory Syncytial VirusPCR Not Detected (NotDetected); Rhinovirus/Enterovirus PCR Not Detected (NotDetected)
--- NOTE | 2023-03-12 00:18 | History & Physical Report ---
Date of Service March 12, 2023 Assessment & Plan (1) Non-ST elevation [place] (NSTEMI): Plan: 77yo female with history of HLP presenting with 2 episodes of chest pain, elevated troponin 122-->255. No acute ischemic changes on EKG. Patient hypertensive on arrival. Concern for NSTEMI. Presently without chest pain. -Admit to medical with telemetry -Trend troponin -Check Lipid panel and HgbA1C -Check 2D echo -Continue heparin gtt initiated in ER -Continue Zetia -ASA 81mg po daily (2) Hypertensive urgency: Plan: Elevation of BP on arrival. Patient reports that her BP is usually well controlled. -Hydralazine 10mg po TID as needed for elevation >180/110 -Monitor (3) Hyperlipidemia: Plan: Chronic. Stable -Continue Zetia (4) Sinus infection: Plan: Continue Doxycycline to completion - 100mg po BID - last day 03/12/22 Continue steroid taper to completion - she has 10mg po daily x 5 days (03/12/23 - 03/16/23) followed by 5mg po daily x 5 days then DC History of Present Illness Chief Complaint: chest pain Primary Care Provider: Eleanor Bledsoe MD Narda Jacobo is a pleasant 77yo female with history of HLP and GERD presenting with chest pain. Patient had been in her usual state of health until this afternoon around 16:00 - she was watering dee at the religion when she developed bandlike discomfort across the upper part of her chest. She described the sensation as heaviness. Non-pleuritic, non-positional, did not seem to be exertional. She denies nausea, vomiting, shortness of breath, diaphoresis or dizziness. She sat down and the pain resolved in approximately 10 minutes. She went home and was feeling ok for a while. Around 18:45 she had dinner (baked potato and carrots) then had a recurrence of the pain. She reports that the pain was more severe and persistent this time. She has had sinusitis - was recently started on Doxycycline and Prednisone taper. In the ER she is afebrile, hypertensive Allergies Allergy/AdvReac Type Severity Reaction Status Date / Time [id number] Reductase AdvReac Severe Joint Pain Verified 03/06/23 12:51 Inhibitor Home Medications Medication Instructions Recorded Confirmed Type fexofenadine 180 mg tablet 180 mg PO DAILY PRN seasonal 01/26/19 03/11/23 History (Allergy Relief (fexofenadine)) allergies ascorbate calcium (vitamin C) 500 500 mg PO QAM 11/08/22 03/11/23 History mg tablet cholecalciferol (vitamin D3) 125 125 mcg PO QAM 11/08/22 03/11/23 History mcg (5,000 unit) capsule ezetimibe 10 mg tablet (Zetia) 10 mg PO QAM 11/08/22 03/11/23 History doxycycline hyclate 100 mg tablet 100 mg PO BID 7 days #14 tabs 03/06/23 03/11/23 Rx prednisone 20 mg tablet See Rx Instructions PO .COMPLEX 03/06/23 03/11/23 Rx #30 tabs Past Med/Surg History Medical History Abscess currently on abx treatment for a right elbow abscess (pt denies that it is open or draining at this time). to finish abx on 11/13/22. Hyperlipidemia Cervical spondylosis H/O Malignant melanoma x2 (1970's & 1979's) Hx of adenomatous colonic polyps Prehypertension no medications SNHL (sensorineural hearing loss) Surgical History H/O removal of cyst History of colonoscopy last done 2016 History of Mohs micrographic surgery for skin cancer History of tonsillectomy History of arthroscopy of both knees History of section Family History Mother Colorectal cancer Denies family history of Ovarian cancer Prostate cancer Myocardial infarction Breast cancer Social History Smoking Status: Never smoker Second Hand Exposure: No; Do You Dip or Chew Tobacco: No; Hx Alcohol Use: Yes Alcohol type: beer Alcohol Intake Frequency: 2-4 x/Month Hx Substance Use: No Preferred Language: Turkish Communication Ability: Effective Visual Impairment: Limited Hearing Ability: Use of Hearing Aid Cue Selector Required: No Beliefs That Will Affect Care: None marital status: Current Living Situation: Spouse current occupational status: retired How many Children do You have: 1 Feels Safe at Home: Yes Childhood Exposure to Second-Hand Smoke: Yes Diet: regular caffeine: Yes during the past year weight has: remained stable Dental Care, Regularly: Yes Physical Activity Frequency: Does not Exercise Seatbelt Use: always Sunscreen Use: Yes Do you think of yourself as: straight/heterosexual Gender Identity: Female Assistive Devices: Glasses and Hearing Aid - Bilateral Review of Systems Review of Systems: All systems reviewed & are unremarkable except as noted in HPI & below Physical Exam Physical Exam: General: patient resting comfortably, NAD, non-toxic in appearance, AA&O x 4 Skin: warm, dry, intact, no rashes or lesions HEENT: NC/AT, PERRL, EOMI, anicteric sclera, conjunctiva without injection, external ear normal to inspection and nontender, nares patent, moist mucus membranes, dentition intact, no oropharyngeal lesions, neck supple, trachea midline, no LAD, no thyromegaly, no JVD Heart: +S1/S2, regular, no m/r/g Lungs: equal air entry bilaterally, no rales/rhonchi/wheezes Abd: +BS, soft, NT/ND, no masses/organomegaly/ascites Ext: warm, 2+ pulses in UE/LE bilaterally, no clubbing/cyanosis or edema Neuro: nonfocal, patient AA&O x 4, speech intact, no facial droop, moving all extremities on command with equal strength 5/5 Results & Data Results & Data Vital Signs (Past 12 Hours) Vital Signs Temp Pulse Pulse Resp BP BP Pulse Ox 03/12/23 00:00 68 20 183/100 H 97 03/11/23 22:16 03/11/23 22:16 03/11/23 22:02 36.6 C 79 14 214/124 H 97 O2 Del Method 03/12/23 00:00 Room Air 03/11/23 22:16 Room Air 03/11/23 22:16 Room Air 03/11/23 22:02 Room Air Laboratory Results Laboratory Results WBC 13.18 K/ul (4.8-10.8) H 03/11/23 22:10 RBC 4.79 M/uL (4.20-5.40) 03/11/23 22:10 Hgb 13.9 g/dl (12.0-16.0) 03/11/23 22:10 Hct 42.9 % (37.0-47.0) 03/11/23 22:10 MCV 89.6 fL (80.0-100.0) 03/11/23 22:10 MCH 29.0 pg (25.0-34.0) 03/11/23 22:10 MCHC 32.4 g/dL (32.0-36.0) 03/11/23 22:10 RDW Std Deviation 42.2 fL (36.4-46.3) 03/11/23 22:10 RDW Coeff of [place] 12.9 % (11.5-14.5) 03/11/23 22:10 Plt Count 379 K/uL (130-400) 03/11/23 22:10 MPV 9.5 fL (9.4-12.4) 03/11/23 22:10 Immature Gran % (Auto) 3.0 % 03/11/23 22:10 Neut % (Auto) 68.4 % 03/11/23 22:10 Lymph % (Auto) 19.6 % 03/11/23 22:10 [place] % (Auto) 8.3 % 03/11/23 22:10 Eos % (Auto) 0.2 % 03/11/23 22:10 Baso % (Auto) 0.5 % 03/11/23 22:10 Neut # (Auto) 9.03 K/uL (1.40-6.50) H 03/11/23 22:10 Lymph # (Auto) 2.58 K/uL (1.20-3.40) 03/11/23 22:10 [place] # (Auto) 1.09 K/uL (0.11-0.59) H 03/11/23 22:10 Eos # (Auto) 0.02 K/uL (0.00-0.50) 03/11/23 22:10 Baso # (Auto) 0.07 K/uL (0.00-0.20) 03/11/23 22:10 Immature Gran # (Auto) 0.39 K/uL (0.01-0.20) H 03/11/23 22:10 PT 10.3 Seconds (9.0-12.0) 03/11/23 22:10 INR 0.9 (0.9-1.1) 03/11/23 22:10 APTT 23 Seconds (21-31) 03/11/23 22:10 PTT Ratio 0.8 03/11/23 22:10 Sodium 138 mmol/L (136-145) 03/11/23 22:10 Potassium 4.3 mmol/L (3.5-5.1) 03/11/23 22:10 Chloride 104 mmol/L (98-107) 03/11/23 22:10 Carbon Dioxide 27 mmol/L (21-32) 03/11/23 22:10 Anion Gap 7 (3-11) 03/11/23 22:10 BUN 25 mg/dl (6-23) H 03/11/23 22:10 Creatinine 0.88 mg/dl (0.6-1.2) 03/11/23 22:10 Est Cr Clr Drug Dosing 59.2 ml/min 03/11/23 22:10 Est GFR ( Amer) 73.5 ml/min 03/11/23 22:10 Est GFR (Non-Af Amer) 63.4 ml/min 03/11/23 22:10 BUN/Creatinine Ratio 28.4 (10-20) H 03/11/23 22:10 Glucose 193 mg/dl (70-99(Fasting)) H 03/11/23 22:10 Calcium 10.0 mg/dl (8.6-10.3) 03/11/23 22:10 Total Bilirubin 0.3 mg/dl (0.2-1.0) 03/11/23 22:10 AST 13 U/L (13-39) 03/11/23 22:10 ALT 15 U/L (7-52) 03/11/23 22:10 Alkaline Phosphatase 66 U/L (34-104) 03/11/23 22:10 Troponin I High Sens 255.6 pg/ml (0-14) H* D 03/12/23 00:22 Total Protein 7.4 gm/dl (6.0-8.3) 03/11/23 22:10 Albumin 3.9 gm/dl (3.4-5.0) 03/11/23 22:10 Globulin 3.5 gm/dl (2.5-4.0) 03/11/23 22:10 Albumin/Globulin Ratio 1.1 (0.9-2) 03/11/23 22:10 Lipase 30 U/L (11-82) 03/11/23 22:10 Adenovirus (PCR) Not Detected (NotDetected) 03/11/23 22:11 B. pertussis DNA (PCR) Not Detected (NotDetected) 03/11/23 22:11 B.parapertussis DNA PCR Not Detected (NotDetected) 03/11/23 22:11 C. pneumoniae DNA (PCR) Not Detected (NotDetected) 03/11/23 22:11 Coronavirus OC43 (PCR) Not Detected (NotDetected) 03/11/23 22:11 Coronavirus HKU1 (PCR) Not Detected (NotDetected) 03/11/23 22:11 Coronavirus 229E (PCR) Not Detected (NotDetected) 03/11/23 22:11 SARS-CoV-2 (PCR) Not Detected (NotDetected) 03/11/23 22:11 Coronavirus NL63 (PCR) Not Detected (NotDetected) 03/11/23 22:11 Human Metapneumovir PCR Not Detected (NotDetected) 03/11/23 22:11 Influenza Type A (PCR) Not Detected (NotDetected) 03/11/23 22:11 Influenza Type B (PCR) Not Detected (NotDetected) 03/11/23 22:11 M. pneumoniae (PCR) Not Detected (NotDetected) 03/11/23 22:11 Parainfluenza 1 (PCR) Not Detected (NotDetected) 03/11/23 22:11 Parainfluenza 2 (PCR) Not Detected (NotDetected) 03/11/23 22:11 Parainfluenza 3 (PCR) Not Detected (NotDetected) 03/11/23 22:11 Parainfluenza 4 (PCR) Not Detected (NotDetected) 03/11/23 22:11 RSV (PCR) Not Detected (NotDetected) 03/11/23 22:11 Entero/Rhino (PCR) Not Detected (NotDetected) 03/11/23 22:11 PG Care Time/CCT Total # of Minutes Spent Total Time Spent with Patient: Total time spent is greater than 50% in coordination of care (as documented) at patient's floor/unit and/or counseling patient: Coding Level of Care Code 79209 INT INP/OBS CARE MIN Diagnoses Non-ST elevation IL (NSTEMI) I21.4 Hypertensive urgency I16.0 Hyperlipidemia E78.5 Sinus infection J32.9
[2023-03-12] MEDS ORDERED: ONDANSETRON INJ 2 MG/ML 2 ML VIAL IV PRN (03:23)
[2023-03-12] MEDS ORDERED: hydrALAZINE 10 MG TAB PO PRN (03:23)
[2023-03-12 04:48] LABS: Chol HDL Ratio 2.5 (0-5); Magnesium 2.1 mg/dl (1.7-2.4); Phosphorus 3.8 mg/dl (2.5-4.9)
[2023-03-12 05:01] LABS: ANTI-Xa, UFH(UnfractionatedHep 0.53 IU/ml (0.3-0.7)
[2023-03-12 05:02] LABS: Troponin I High Sensitivity 393.1 pg/ml (0-14)
--- NOTE | 2023-03-12 07:35 | XRay Report ---
XR chest 1V portable HISTORY: 77 years-old Female Chest pain, nonspecific COMPARISON: 03/07/2010 TECHNIQUE: AP view of the chest FINDINGS: Cardiac silhouette is enlarged. Hiatal hernia. Eventration of the right hemidiaphragm. No pneumothora x, pleural effusion or overt pulmonary edema. Bones of the chest appear grossly intact. IMPRESSION: 1. Cardiomegaly without acute process of the chest. 2. Hiatal hernia. ACT 112: Negative or not required by law. The above report was generated using voice recognition software. It may contain grammatical, syntax o r spelling errors. Electronically signed by: Malik Babb M.D. 03/12/2023 7:33 AM
[2023-03-12 07:54] LABS: Estimated Average Glucose 128 mg/dl; Hemoglobin A1C 6.1 % (4.5-5.6)
[2023-03-12] MEDS: predniSONE 20 MG TAB PO SCH (09:18)
[2023-03-12] MEDS: DOXYCYCLINE HYCLATE 100 MG CAP PO SCH ×2 (09:18→20:28)
[2023-03-12] MEDS: EZETIMIBE 10 MG TAB PO SCH (09:18)
[2023-03-12] MEDS: ASPIRIN 81 MG ECTAB PO SCH (09:18)
[2023-03-12 10:59] LABS: ANTI-Xa, UFH(UnfractionatedHep 0.31 IU/ml (0.3-0.7)
--- NOTE | 2023-03-12 12:22 | Cardiology Consultation ---
Date of Consultation March 12, 2023 Assessment & Plan (1) Non-ST elevation IL (NSTEMI): (2) Carotid atherosclerosis: (3) Hypertensive urgency: (4) Hyperlipidemia: (5) Pulmonary hypertension: (6) Mitral regurgitation: Plan ASSESSMENT/PLAN: 1. NSTEMI: Currently chest pain-free. Had significantly elevated blood pressure on presentation, which may be responsible or playing a role. Concern for underlying CAD. Recommend cardiac catheterization. Risks and benefits were discussed with her in detail. She was made aware that CT surgery is not available. She is agreeable to proceed when available. Continue heparin drip. Continue aspirin. Start metoprolol tartrate 25 mg twice daily. Start low-dose ADE inhibitor. Start high intensity statin therapy. 2. Carotid atherosclerosis: Has an appointment with CT surgery and no hemodynamically stenosis was reported. Recommend high intensity statin therapy and aspirin 81 mg daily. Asymptomatic. 3. Hypertension/hypertensive urgency: Blood pressure remains elevated but improved. Start low-dose beta-suyapa and ADE inhibitor as above given NSTEMI. Titrate as necessary. 4. Dyslipidemia: Did not tolerate simvastatin in the past. Discussed rationale for high intensity statin therapy. She was agreeable. Start atorvastatin 40 mg daily and can discontinue Zetia. 5. Pulmonary hypertension: Mild. She does not appear to be significantly hypervolemic. She is hypertensive however systemically. 6. Mitral regurgitation: Nonsevere. Asymptomatic. Monitor as an outpatient. 7. Disposition: Cardiology will continue to follow. Patient's was called with her permission to update him on plan. Any questions were answered. Patient care was communicated with Dr. Natarajan, primary hospitalist. Highly complex medical issues. Thank you for allowing me to participate in the care of your patient. Please call for any other questions or concerns. Sincerely, Patricio Valderrama M.D. History of Present Illness Reason for Consultation: chest pain, elevated troponin Requesting Physician: Dr. Madison Attending Physician: Erika Natarajan MD History of Present Illness Mrs. Jacobo is a very pleasant 77-year-old female with a history significant for dyslipidemia, carotid artery atherosclerosis, and malignant melanoma who was hospitalized on 03/11/2023 with chest pain. Her first episode of chest discomfort was on 03/11/2023 with exertion, while watering dee at [employer]. It was a band across her chest but also a substernal chest pressure that was nonradiating and with no associated shortness of breath. Symptoms resolved within 10 minutes of rest. Later that evening, while preparing dinner, she had another episode that she estimates lasting for approximately 2 hours, once again with exertion. She has not had any further chest discomfort since presenting to the emergency department last evening. Her initial blood pressure was 214/124 mmHg. She has remained hypertensive but improved from presentation. She does not exercise but remains active. Her stamina has decreased over the past year but no exertional or rest chest discomfort until her exertional pain yesterday. She denies melena, hematochezia, hematuria, or other bleeding. She has chronic ankle swelling, specifically in her left leg but believes her legs are more swollen today. She denies shortness of breath, orthopnea, syncope, near syncope, or palpitations. In the past she was on simvastatin and tolerated it for years before developing arthralgias, which resolved upon discontinuation of the medication. She is tolerating Zetia. She reports that she had a recent carotid artery duplex that demonstrated atherosclerosis and is scheduled to see vascular surgery, Dr. Cantu, in the outpatient setting. Review of systems: As above. Review of systems otherwise negative/unremarkable. Family history: No known premature CAD. Social history: She denies tobacco abuse. Occasional alcohol. Lives at home with her . Has 1 adult daughter (currently ). 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 She was unaccompanied. Allergies Allergy/AdvReac Type Severity Reaction Status Date / Time [id number] Reductase AdvReac Severe Joint Pain Verified 03/06/23 12:51 Inhibitor Home Medications Medication Instructions Recorded Confirmed Type fexofenadine 180 mg tablet 180 mg PO DAILY PRN seasonal 01/26/19 03/11/23 History (Allergy Relief (fexofenadine)) allergies ascorbate calcium (vitamin C) 500 500 mg PO QAM 11/08/22 03/11/23 History mg tablet cholecalciferol (vitamin D3) 125 125 mcg PO QAM 11/08/22 03/11/23 History mcg (5,000 unit) capsule ezetimibe 10 mg tablet (Zetia) 10 mg PO QAM 11/08/22 03/11/23 History doxycycline hyclate 100 mg tablet 100 mg PO BID 7 days #14 tabs 03/06/23 03/11/23 Rx prednisone 20 mg tablet See Rx Instructions PO .COMPLEX 03/06/23 03/11/23 Rx #30 tabs Patient History Medical History Carotid atherosclerosis Abscess currently on abx treatment for a right elbow abscess (pt denies that it is open or draining at this time). to finish abx on 11/13/22. Hyperlipidemia Cervical spondylosis H/O Malignant melanoma x2 (1970's & s) Hx of adenomatous colonic polyps Prehypertension no medications SNHL (sensorineural hearing loss) Surgical History H/O removal of cyst History of colonoscopy last done 2016 History of Mohs micrographic surgery for skin cancer History of tonsillectomy History of arthroscopy of both knees History of section Family History Mother Colorectal cancer Denies family history of Ovarian cancer Prostate cancer Myocardial infarction Breast cancer Social History Smoking Status: Never smoker Second Hand Exposure: No; Do You Dip or Chew Tobacco: No; Hx Alcohol Use: Yes Alcohol type: beer Alcohol Intake Frequency: 2-4 x/Month Hx Substance Use: No Preferred Language: Maori Communication Ability: Effective Visual Impairment: Limited Hearing Ability: Use of Hearing Aid Knurling Machine Operator Required: No Beliefs That Will Affect Care: None marital status: Current Living Situation: Spouse current occupational status: retired How many Children do You have: 1 Other Information That Helps Us Care for You: No Feels Safe at Home: Yes Childhood Exposure to Second-Hand Smoke: Yes Diet: regular caffeine: Yes during the past year weight has: remained stable Dental Care, Regularly: Yes Physical Activity Frequency: Does not Exercise Seatbelt Use: always Sunscreen Use: Yes Do you think of yourself as: straight/heterosexual Gender Identity: Female Assistive Devices: None Physical Exam Physical Exam: Gen.: No acute distress. Alert and oriented. HEENT: Anicteric sclera. Neck: No JVD. Bilateral carotid bruits, left more so than the right. Normal carotid upstrokes bilaterally. Cardiac: No ventricular heave. Regular. Normal S1-S2. 2/6 early peaking systolic ejection murmur. Pulmonary: Clear to auscultation bilaterally without wheezes, rales, or rhonchi. Abdomen: Soft, nontender, nondistended, with normoactive bowel sounds. No bruits noted. Extremities: 2+ radial pulses bilaterally. 2+ posterior tibialis pulses bilaterally. Trace bilateral lower extremity edema. No cyanosis. Psychiatric: Affect appears appropriate. Chest: Nontender. Results & Data Vital Signs (Past 12 Hours) Vital Signs Pulse Pulse Resp BP Pulse Ox O2 Del Method 03/12/23 09:21 82 18 151/98 H 95 Room Air 03/12/23 06:59 76 03/12/23 06:16 63 19 154/82 H 95 Room Air 03/12/23 03:17 63 03/12/23 03:00 67 16 92 Room Air 03/12/23 02:47 64 19 166/90 H 95 Room Air Laboratory Results Laboratory Results - last 24 hr 03/11/23 03/11/23 03/12/23 22:10 22:11 00:22 WBC 13.18 H RBC 4.79 Hgb 13.9 Hct 42.9 MCV 89.6 MCH 29.0 MCHC 32.4 RDW Std Deviation 42.2 RDW Coeff of Tex 12.9 Plt Count 379 MPV 9.5 Immature Gran % (Auto) 3.0 Neut % (Auto) 68.4 Lymph % (Auto) 19.6 Catron % (Auto) 8.3 Eos % (Auto) 0.2 Baso % (Auto) 0.5 Neut # (Auto) 9.03 H Lymph # (Auto) 2.58 Catron # (Auto) 1.09 H Eos # (Auto) 0.02 Baso # (Auto) 0.07 Immature Gran # (Auto) 0.39 H PT 10.3 INR 0.9 APTT 23 PTT Ratio 0.8 Heparin Anti-Xa, Unfract Sodium 138 Potassium 4.3 Chloride 104 Carbon Dioxide 27 Anion Gap 7 BUN 25 H Creatinine 0.88 Est Cr Clr Drug Dosing 59.2 Est GFR ( Amer) 73.5 Est GFR (Non-Af Amer) 63.4 BUN/Creatinine Ratio 28.4 H Glucose 193 H Estimat Average Glucose Hemoglobin A1c Calcium 10.0 Phosphorus Magnesium Total Bilirubin 0.3 AST 13 ALT 15 Alkaline Phosphatase 66 Troponin I High Sens 122.0 H* 255.6 H* D Total Protein 7.4 Albumin 3.9 Globulin 3.5 Albumin/Globulin Ratio 1.1 Triglycerides Cholesterol LDL Cholesterol, Calc VLDL Cholesterol, Calc HDL Cholesterol Cholesterol/HDL Ratio Lipase 30 Adenovirus (PCR) Not Detected B. pertussis DNA (PCR) Not Detected B.parapertussis DNA PCR Not Detected C. pneumoniae DNA (PCR) Not Detected Coronavirus OC43 (PCR) Not Detected Coronavirus HKU1 (PCR) Not Detected Coronavirus 229E (PCR) Not Detected SARS-CoV-2 (PCR) Not Detected Coronavirus NL63 (PCR) Not Detected Human Metapneumovir PCR Not Detected Influenza Type A (PCR) Not Detected Influenza Type B (PCR) Not Detected M. pneumoniae (PCR) Not Detected Parainfluenza 1 (PCR) Not Detected Parainfluenza 2 (PCR) Not Detected Parainfluenza 3 (PCR) Not Detected Parainfluenza 4 (PCR) Not Detected RSV (PCR) Not Detected Entero/Rhino (PCR) Not Detected 03/12/23 03/12/23 04:19 10:14 WBC RBC Hgb Hct MCV MCH MCHC RDW Std Deviation RDW Coeff of Tex Plt Count MPV Immature Gran % (Auto) Neut % (Auto) Lymph % (Auto) Catron % (Auto) Eos % (Auto) Baso % (Auto) Neut # (Auto) Lymph # (Auto) Catron # (Auto) Eos # (Auto) Baso # (Auto) Immature Gran # (Auto) PT INR APTT PTT Ratio Heparin Anti-Xa, Unfract 0.53 0.31 Sodium Potassium Chloride Carbon Dioxide Anion Gap BUN Creatinine Est Cr Clr Drug Dosing Est GFR ( Amer) Est GFR (Non-Af Amer) BUN/Creatinine Ratio Glucose Estimat Average Glucose 128 Hemoglobin A1c 6.1 H Calcium Phosphorus 3.8 Magnesium 2.1 Total Bilirubin AST ALT Alkaline Phosphatase Troponin I High Sens 393.1 H* D 264.5 H* D Total Protein Albumin Globulin Albumin/Globulin Ratio Triglycerides 78 Cholesterol 168 LDL Cholesterol, Calc 85 VLDL Cholesterol, Calc 16 HDL Cholesterol 67 Cholesterol/HDL Ratio 2.5 Lipase Adenovirus (PCR) B. pertussis DNA (PCR) B.parapertussis DNA PCR C. pneumoniae DNA (PCR) Coronavirus OC43 (PCR) Coronavirus HKU1 (PCR) Coronavirus 229E (PCR) SARS-CoV-2 (PCR) Coronavirus NL63 (PCR) Human Metapneumovir PCR Influenza Type A (PCR) Influenza Type B (PCR) M. pneumoniae (PCR) Parainfluenza 1 (PCR) Parainfluenza 2 (PCR) Parainfluenza 3 (PCR) Parainfluenza 4 (PCR) RSV (PCR) Entero/Rhino (PCR) Diagnostic Findings Labs reviewed and notable for elevated high-sensitivity troponin, initially 122, peaking at 393 and then trending downward. Normal renal function, normal potassium, mild leukocytosis, normal hemoglobin, elevated LDL in the setting of atherosclerosis, normal transaminase levels. Chest x-ray 03/11/2023: No acute process per radiology. ECG personally reviewed 03/11/2023: Sinus rhythm [address] abnormality. Echo 03/12/2023: Normal LV size, wall motion, systolic function. EF 55-60%. Mild LVH. Mild left atrial dilation. Sclerotic aortic valve without stenosis. Mild MR. RVSP 44. History and physical report reviewed. Medications Administered Current Inpatient Medications Aspirin (Aspirin 81 Mg Ectab) 81 mg PO DAILY [facility] Stop: 04/11/23 08:59 Last Admin: 03/12/23 09:18 Dose: 81 mg Doxycycline Hyclate (Doxycycline Hyclate 100 Mg Cap) 100 mg PO BID [facility] Stop: 03/13/23 08:59 Last Admin: 03/12/23 09:18 Dose: 100 mg Ezetimibe (Ezetimibe 10 Mg Tab) 10 mg PO QAM [facility] Stop: 04/11/23 08:59 Last Admin: 03/12/23 09:18 Dose: 10 mg Hydralazine HCl (Hydralazine 10 Mg Tab) 10 mg PO TID PRN PRN Reason: Hypertension Stop: 04/11/23 03:22 Last Admin: 03/12/23 09:22 Dose: 10 mg Heparin Sodium/Dextrose (Heparin Sodium/Dextrose) 25,000 units in 500 mls @ 17 mls/hr IV .Q24H [facility]; Protocol Stop: 04/10/23 23:44 Last Titration: 03/12/23 05:18 Dose: 850 units/hr, 17 mls/hr Ondansetron HCl (Ondansetron Inj 2 Mg/Ml 2 Ml Vial) 4 mg IV Q6H PRN PRN Reason: Nausea Stop: 04/11/23 03:22 Prednisone (Prednisone 20 Mg Tab) 40 mg PO DAILY CATRINA; Taper Stop: 03/22/23 08:59 Last Admin: 03/12/23 09:18 Dose: 40 mg PG Care Time/CCT Total # of Minutes Spent Total Time Spent with Patient: Total time spent is greater than 50% in coordination of care (as documented) at patient's floor/unit and/or counseling patient: Coding Level of Care Code 53317 INT INP/OBS CARE 3/75MIN Diagnoses Non-ST elevation IL (NSTEMI) I21.4 Carotid atherosclerosis I65.29 Hypertensive urgency I16.0 Hyperlipidemia E78.5 Pulmonary hypertension I27.20 Mitral regurgitation I34.0
--- NOTE | 2023-03-12 12:32 | Pre Anesthesia Assessment ---
Date of Service March 12, 2023 Pre Sedation Assessment Vital Signs Temp Pulse Pulse Resp BP BP Pulse Ox 03/12/23 09:21 82 18 151/98 H 95 03/12/23 06:59 76 03/12/23 06:16 63 19 154/82 H 95 03/12/23 03:17 63 03/12/23 03:00 67 16 92 03/12/23 02:47 64 19 166/90 H 95 03/12/23 00:00 68 20 183/100 H 97 03/11/23 22:22 71 03/11/23 22:16 03/11/23 22:16 03/11/23 22:02 36.6 C 79 14 214/124 H 97 O2 Del Method 03/12/23 09:21 Room Air 03/12/23 06:59 03/12/23 06:16 Room Air 03/12/23 03:17 03/12/23 03:00 Room Air 03/12/23 02:47 Room Air 03/12/23 00:00 Room Air 03/11/23 22:22 03/11/23 22:16 Room Air 03/11/23 22:16 Room Air 03/11/23 22:02 Room Air Cardiovascular + regular rate + murmur Respiratory normal respiratory effort, lungs clear to auscultation Pre-Sedation Airway Assessment Smoking Status: Never smoker Mallampati Class: III ASA: ASA3 NPO Status Date of Last Intake of Fluids: 03/12/23 Time of Last Intake of Fluids: 09:00 Last Oral Intake of Fluids Comment: very light meal with meds Date of Last Intake of Solid Food: 03/12/23 Time of Last Intake of Solid Foods: 09:00 Procedure Planning Contraindications for Sedation: none Current Medications Reviewed: Yes Notes The planned sedation has been discussed with the patient. Informed Consent was obtained. I have identified the patient, determined the appropriateness of sedation and have assessed the patient immediately prior to the procedure. All medicine(s) and interventions are by my order.
[2023-03-12] MEDS ORDERED: NITROGLYCERIN/D5W 100MCG/ML 20ML SYR ONE (12:57)
[2023-03-12] MEDS ORDERED: fentaNYL citrate PF 100 MCG/2 ML VIAL ONE (12:57)
[2023-03-12] MEDS ORDERED: niCARdipine HCL INJ 2.5 MG/ML 10 ML AMP ONE (12:57)
[2023-03-12] MEDS ORDERED: MIDAZOLAM HCL 1 MG/ML 2ML VIAL ONE (12:57)
[2023-03-12] MEDS ORDERED: HEPARIN (PORCINE) 1000 UNIT/ML 10 ML (CATH LAB USE ONLY) ONE (12:57)
--- NOTE | 2023-03-12 13:55 | Cardiac Catheterization ---
[facility] Data: Auto Wash Buffer Cardiac Status Clinical evaluation leading to the procedure CAD Presenation: Non STEMI Anginal Classification: CCS III Heart Failure: No Cardiogenic Shock within 24 Hours: No Cardiac Arrest within 24 Hours: No Imaging Studies Past 6 Months: Yes Stress Studies Past 6 Months: No Coronary Anatomy Dominant: Right Diagnostic Physicians Name: Anatoliy Valderrama MD Status: Elective Closure Device Percutaneous Entry Location: Radial Closure Device: Radial Band Recommendations: PCI without planned CABG Cardiac Cath Procedure Full Procedure Date March 12, 2023 Pre-Procedure Diagnosis Pre-Procedure Diagnosis: Non STEMI AUC Score AUC Score: 8 Post-Procedure Diagnosis Post-Procedure Diagnosis: Severe CAD and Normal Intracardiac Pressures Procedure(s) Performed Procedure(s) Performed: Coronary Angiography and Left Heart Cath Prevention Specialist Anatoliy Valderrama MD Manager Food Beverage(s) Michelle Corral Estimated Blood Loss Estimated Blood Loss: < 20 ml Medication(s) Medication(s): Fentanyl, Heparin, Lidocaine 1%, Nicardipine and Versed Summary of Findings Procedures: 1. Coronary angiography 2. Left heart catheterization 3. Moderate sedation Indication: Mrs. Jacobo is a pleasant 77-year-old female with carotid artery atherosclerosis, hypertension, and dyslipidemia who presented with NSTEMI. LV systolic function was normal on echo. Coronary angiography: 1. Left main: Large caliber but short vessel. No significant CAD. 2. Left anterior descending: Large caliber vessel that wraps around the apex. Small D1, small to medium caliber D2, small D3. No significant CAD within the LAD system. 3. Circumflex: Circumflex originates as a large caliber vessel but mid to distal within the AV groove, is a very small caliber vessel. Large OM1. Proximal circumflex 10 to 20%. 4. Right coronary artery: RCA is large and dominant. Proximal RCA 80 to 90%. Mid RCA 10%. Early distal RCA 90 to 95%. TEAGAN-[address] without significant CAD. Left heart catheterization: 1. Left ventriculography was not performed. 2. Normal LVEDP; 10 mmHg. 3. Sogp-xn-uclk gradient across the aortic valve < 10 mmHg Moderate sedation: 1. Sedation start time: 1:19 PM 2. Sedation end time: 1:39 PM Impression: 1. Severe CAD involving proximal RCA and early distal RCA. 2. Otherwise, mild nonobstructive CAD. 3. Normal left-sided filling pressure. 4. No significant aortic stenosis. Plan: 1. Images were reviewed with interventional cardiology, Dr. Oconnor, who plans on attempting PCI of the RCA. 2. Risk factor modification. 3. Cardiac rehab. Hemodynamics Rest Ao:: 135/70 Final Ao: 157/74 LV: 147/3/10 Recommendations Recommendations: PCI without planned CABG Specimens Specimens: None Radiation Exposure (mGy) 921 mGy. Fluoro time 4.8 min. Contrast (mls) 25 ml Procedural Complication(s) None Disposition remains in chemical processing laborer for PCI with interventional cardiology I attest to the content of the Intraoperative Record and any orders documented therein. Any exceptions are noted below. [facility] Card Cath Procedure Codes Cardiac Catheterization Procedure 1: Cardiovascular Cath Procedures: 95013 Coronaries and LHC (+/-LV) Moderate Sedation Procedure 1: Sedation/Anesthesia: 67812 Mod Sedation by the same physician;Init15 Min Child Age 5 & Up Procedure 2: Sedation/Anesthesia: 21688 Mod Sedation by the same physician; Ea [id number] Minutes PG Care Time/CCT Total # of Minutes Spent Total Time Spent with Patient: Total time spent is greater than 50% in coordination of care (as documented) at patient's floor/unit and/or counseling patient:
[2023-03-12] MEDS ORDERED: CLOPIDOGREL BISULFATE 300 MG TAB ONE (14:01)
--- NOTE | 2023-03-12 14:18 | Post Anesthesia Assessment ---
Date of Service March 12, 2023 Post Sedation Assessment Vital Signs Temp Pulse Pulse Resp BP BP Pulse Ox 03/12/23 13:10 98.2 F 79 18 194/93 H 96 03/12/23 09:21 82 18 151/98 H 95 03/12/23 06:59 76 03/12/23 06:16 63 19 154/82 H 95 03/12/23 03:17 63 03/12/23 03:00 67 16 92 03/12/23 02:47 64 19 166/90 H 95 03/12/23 00:00 68 20 183/100 H 97 03/11/23 22:22 71 03/11/23 22:16 03/11/23 22:16 03/11/23 22:02 97.9 F 79 14 214/124 H 97 O2 Del Method 03/12/23 13:10 Room Air 03/12/23 09:21 Room Air 03/12/23 06:59 03/12/23 06:16 Room Air 03/12/23 03:17 03/12/23 03:00 Room Air 03/12/23 02:47 Room Air 03/12/23 00:00 Room Air 03/11/23 22:22 03/11/23 22:16 Room Air 03/11/23 22:16 Room Air 03/11/23 22:02 Room Air Recovery Score Activity: Moves 4 extremities Respiration: Deep Breath/Cough Circulation: +/-20% PreAnes Value Consciousness: Fully Awake Oxygen Saturation: O2 needed for >90% Discharge Sedation Level of Care: Fast Track Phase II Post Sedation Plan On clinical assessment, the patient appears to have tolerated the sedation without complications. Patient is recovering as anticipated. Patient will continue to be monitored by nursing and may be discharged when sedation discharge criteria are met per below protocol. Upon Completions of procedure up to 15 minutes continue every 5 minute vital signs and the P.A.R. score; then discharge to a Phase I or Fast Track to Phase II per the following guidelines: * Discharge Patient to appropriate Phase II area if PAR is 8 or greater or return to pre- procedure baseline. The post - procedure orders will be as directed. * If PAR score is less than 8 or not return to pre-procedure baseline then patient will follow Phase I monitoring till PAR is reached for Phase II. The Phase I may be done in procedure room or may call to secure a Phase I area. * If naloxone or flumazenil are used for reversal, hold in Phase I for continued monitoring from when last reversal dose was given for a minimum of 60 minutes or longer pending the nurse and/or physician discretion of patient condition before discharge to Phase II. Please call the Sedation Physician to re-evaluate and complete post-note for discharge to Phase II area. Do NOT discharge from procedure sedation or Phase 1 until post- sedation evaluation note is complete by procedure /sedation MD Sedation Discharge Instructions to be given to the patient at discharge to home.
[2023-03-12] MEDS ORDERED: OPTIRAY 350 ONE (14:22)
--- NOTE | 2023-03-12 14:24 | Cardiac Catheterization ---
[facility] Data: Jewelry Polisher Cardiac Status Clinical evaluation leading to the procedure CAD Presenation: Non STEMI Diagnostic Physicians Name: Rashawn Oconnor MD Closure Device Recommendations: PCI without planned CABG Cardiac Cath Procedure Full Procedure Date March 12, 2023 Pre-Procedure Diagnosis Pre-Procedure Diagnosis: Non STEMI AUC Score AUC Score: 8 Post-Procedure Diagnosis Post-Procedure Diagnosis: Severe CAD and Successful PCI Procedure(s) Performed Procedure(s) Performed: Coronary Angiography and Drug Eluting Stent Towboat Operator Rashawn Oconnor MD Cube Cutter(s) Michelle Corral Estimated Blood Loss Estimated Blood Loss: 25 Medication(s) Medication(s): Clopidogrel, Fentanyl, Heparin, Nicardipine, Nitroglycerin and Versed Summary of Findings Indication: NSTEMI Access: 6 Fr right radial artery Catheters: JR4 guide Findings: For full details of patient's coronary angiography please see cath report dictated by Dr. Valderrama. Briefly, patient found to have severe RCA disease with proximal 85% stenosis and earlydistal 95% stenosis. Decision to proceed with PCI. -- PCI -- Antithrombotic therapy: Heparin, clopidogrel Procedure: RCA cannulated with JR4 guide Pre-procedure flow TEAGAN 3 Senior [employer] 50 wire passed across lesion into distal vessel Early distal and proximal RCA lesions predilated with 2.5 compliant balloon Dilated earlydistal RCA lesion stented with 2.75 x 18 mm [place] drug-eluting stent Proximal RCA lesion stented with 3.0 x 15 mm [place] drug-eluting stent Stent post-dilated with 3.25 noncompliant balloon IC vasodilators administered for spasm Post procedure TEAGAN 3 flow, stents well expanded with minimal residual stenosis and no apparent cardiac complications. Arterial Closure: TR band Summary: 1. Successful PCI of proximal RCA with 3.0 x [address] [place] KELLY and earlydistal RCA with 2.75 x 18 mm Isai KELLY. Recommendations: To PCU for continued monitoring Loaded with clopidogrel 600 mg in Jewelry Polisher Continue dual-antiplatelet therapy for at least 1 year Continue statin, and ASCVD risk factor modification Consult cardiac Rehab Hemodynamics Rest Ao:: 135/70/99 Final Ao: 157/74/110 LV: -- Recommendations Recommendations: PCI without planned CABG Specimens Specimens: None Radiation Exposure (mGy) 2155 Contrast (mls) 100 Anesthesia Moderate [id number] Procedural Complication(s) None Disposition PCU I attest to the content of the Intraoperative Record and any orders documented therein. Any exceptions are noted below. [facility] Card Cath Procedure Codes Moderate Sedation Procedure 1: Sedation/Anesthesia: 76435 Mod Sedation by the same physician; Ea [id number] Minutes Stenting Procedure 1: Cardiovascular Stent Procedures: 63003 Perc transcatheter placement of intracoronary stent(s), with ang PG Care Time/CCT Total # of Minutes Spent Total Time Spent with Patient: Total time spent is greater than 50% in coordination of care (as documented) at patient's floor/unit and/or counseling patient:
[2023-03-12] MEDS ORDERED: SODIUM CHLORIDE 0.9% 1,000 ML IV SCH (14:30)
[2023-03-12] MEDS: METOPROLOL TARTRATE 25 MG TAB PO SCH ×2 (15:37→20:28)
--- NOTE | 2023-03-12 16:02 | XCELERA ---
[id number] \\[id number]
[2023-03-12 16:47] LABS: ANTI-Xa, UFH(UnfractionatedHep > 1.50 IU/ml (0.3-0.7)
[2023-03-12] MEDS: HEPARIN SOD 5,000 UNIT/0.5 ML VIAL SQ SCH (20:29)
[2023-03-12] MEDS ORDERED: ATORVASTATIN 40 MG TAB PO SCH (21:00)
[2023-03-13 06:43] LABS: Hematocrit (blood only) 41.1 % (37.0-47.0); Hemoglobin 13.7 g/dl (12.0-16.0); Mean Corpuscular Hemoglobin 29.6 pg (25.0-34.0); Mean Corpuscular Hgb Conc 33.3 g/dL (32.0-36.0); Mean Corpuscular Volume 88.8 fL (80.0-100.0); Mean Platelet Volume 9.4 fL (9.4-12.4); Platelet Count 295 K/uL (130-400); RDW Coefficient of Variation 13.1 % (11.5-14.5); RDW Standard Deviation 42.4 fL (36.4-46.3); Red Blood Count 4.63 M/uL (4.20-5.40); White Blood Count 12.68 K/ul (4.8-10.8)
[2023-03-13 06:56] LABS: BUN Creatinine Ratio 24.1 (10-20); Calcium 9.2 mg/dl (8.6-10.3); Creatinine Clr Calc Pharmacy 63.1 ml/min; Est GFR (African American) 83.7 ml/min; Est GFR (Non-African American) 72.2 ml/min; Potassium 4.1 mmol/L (3.5-5.1)
[2023-03-13] MEDS: METOPROLOL TARTRATE 25 MG TAB PO SCH (08:03)
[2023-03-13] MEDS: predniSONE 20 MG TAB PO SCH (08:04)
[2023-03-13] MEDS: EZETIMIBE 10 MG TAB PO SCH (08:04)
[2023-03-13] MEDS: ASPIRIN 81 MG ECTAB PO SCH (08:04)
[2023-03-13] MEDS ORDERED: lisinopril 5 MG TAB PO SCH (09:00)
[2023-03-13] MEDS ORDERED: CLOPIDOGREL BISULFATE 75 MG TAB PO SCH (09:00)
[2023-03-13] MEDS: HEPARIN SOD 5,000 UNIT/0.5 ML VIAL SQ SCH (10:06)
--- NOTE | 2023-03-13 10:38 | Cardiology Progress Note ---
Date of Service March 13, 2023 Assessment & Plan (1) Non-ST elevation MO (NSTEMI): (2) CAD (coronary artery disease): (3) S/P coronary artery stent placement: (4) Carotid atherosclerosis: (5) Hypertensive urgency: (6) Hyperlipidemia: (7) Pulmonary hypertension: (8) Mitral regurgitation: Plan ASSESSMENT/PLAN: 1. CAD and NSTEMI s/p RCA PCI x 2: No further angina. Repeat ECG ordered. Aspirin 81 mg daily indefinitely. Plavix 75 mg daily for at least 1 year. Beta-suyapa and low-dose ADE inhibitor initiated during this hospital stay. High intensity statin therapy initiated. Cardiac rehab. 2. Carotid atherosclerosis: Has an appointment with CT surgery and no hemodynamically stenosis was reported. Recommend high intensity statin therapy and aspirin 81 mg daily. Asymptomatic. 3. Hypertension/hypertensive urgency: Blood pressure has remained elevated. First dose of ADE inhibitor was this morning. Blood pressure much improved following first dose of ADE inhibitor. Can titrate if necessary. Beta-suyapa initiated during this hospital stay. Continue metoprolol. Low-sodium diet. 4. Dyslipidemia: Did not tolerate simvastatin in the past. Zetia replaced with atorvastatin 40 mg daily, if tolerated. Goal LDL < 70. If 40 mg tolerated and LDL not at goal, would recommend increasing atorvastatin to 80 mg daily as an outpatient. 5. Pulmonary hypertension: Mild. She does not appear to be significantly hypervolemic. 6. Mitral regurgitation: Nonsevere. Asymptomatic. Monitor as an outpatient. 7. Disposition: Can be discharged home from a cardiology perspective. Follow- up has been arranged in the cardiology office next week. Recommend cardiac rehab be arranged at that time. Patient care was communicated with Dr. Natarajan, primary hospitalist. Prescriptions for metoprolol, as needed nitroglycerin, lisinopril, Plavix, aspirin, and atorvastatin were sent to her pharmacy as per her request. Remainder of medication reconciliation to be performed by the hospitalist service. Admission and Anticipated Discharge Date Admission Date: March 12, 2023 Subjective Patient was seen earlier this afternoon. She has not had any further angina since PCI. She denies shortness of breath, syncope, near syncope, palpitations, edema, or bleeding. She feels very well and would like to go home. Her was going to go to their pharmacy before picking her up so she asked that any new medications be sent there soon. She was alone in her hospital room. Physical Exam Physical Exam: Gen.: No acute distress. Alert and oriented. HEENT: Anicteric sclera. Neck: No JVD. Cardiac: No ventricular heave. Regular. Normal S1-S2. 2/6 early peaking systolic ejection murmur. Pulmonary: Clear to auscultation bilaterally without wheezes, rales, or rhonchi. Abdomen: Soft, nontender, nondistended, with normoactive bowel sounds. No bruits noted. Extremities: 2+ radial pulses bilaterally. Right radial cath site was clean, dry, and intact without erythema or discharge. 2+ posterior tibialis pulses bilaterally. No significant pitting edema. No cyanosis. Psychiatric: Affect appears appropriate. Results & Data Vital Signs (Past 12 Hours) Vital Signs Temp Pulse Pulse Resp BP Pulse Ox O2 Del Method 03/13/23 07:35 36.4 C L 66 17 169/89 H 93 Room Air 03/13/23 07:28 57 L 03/13/23 03:23 36.6 C 59 L 18 151/64 H 96 Room Air 03/12/23 23:25 36.6 C 64 17 145/75 H 96 Room Air 03/12/23 23:00 55 L Laboratory Results Laboratory Results - last 24 hr 03/12/23 03/12/23 03/12/23 10:14 13:25 13:57 WBC RBC Hgb Hct MCV MCH MCHC RDW Std Deviation RDW Coeff of Tex Plt Count MPV Activ Coag Time Kaolin 142 H 315 H Heparin Anti-Xa, Unfract 0.31 Sodium Potassium Chloride Carbon Dioxide Anion Gap BUN Creatinine Est Cr Clr Drug Dosing Est GFR ( Amer) Est GFR (Non-Af Amer) BUN/Creatinine Ratio Glucose Calcium Troponin I High Sens 264.5 H* D 03/12/23 03/13/23 15:41 06:12 WBC 12.68 H RBC 4.63 Hgb 13.7 Hct 41.1 MCV 88.8 MCH 29.6 MCHC 33.3 RDW Std Deviation 42.4 RDW Coeff of Tex 13.1 Plt Count 295 MPV 9.4 Activ Coag Time Kaolin Heparin Anti-Xa, Unfract > 1.50 H* Sodium 140 Potassium 4.1 Chloride 106 Carbon Dioxide 28 Anion Gap 6 BUN 19 Creatinine 0.79 Est Cr Clr Drug Dosing 63.1 Est GFR ( Amer) 83.7 Est GFR (Non-Af Amer) 72.2 BUN/Creatinine Ratio 24.1 H Glucose 105 H Calcium 9.2 Troponin I High Sens 187.7 H* D Diagnostic Findings Cardiac cath 03/12/2023: Coronary angiography: 1. Left main: Large caliber but short vessel. No significant CAD. 2. Left anterior descending: Large caliber vessel that wraps around the apex. Small D1, small to medium caliber D2, small D3. No significant CAD within the LAD system. 3. Circumflex: Circumflex originates as a large caliber vessel but mid to distal within the AV groove, is a very small caliber vessel. Large OM1. Proximal circumflex 10 to 20%. 4. Right coronary artery: RCA is large and dominant. Proximal RCA 80 to 90%. Mid RCA 10%. Early distal RCA 90 to 95%. TEAGAN-[address] without significant CAD. Left heart catheterization: 1. Left ventriculography was not performed. 2. Normal LVEDP; 10 mmHg. 3. Dltj-my-iqrb gradient across the aortic valve < 10 mmHg Interventional summary: 1. Successful PCI of proximal RCA with 3.0 x 15 mm [place] KELLY and earlydistal RCA with 2.75 x 18 mm [place] KELLY. Labs reviewed from 03/13/2023 and notable for stable renal function, normal potassium, stable hemoglobin, stable mild leukocytosis. Chart reviewed. Telemetry personally reviewed: Sinus rhythm. No arrhythmia. ECG personally reviewed 03/13/2023 at 11:32 AM: Sinus rhythm 62 bpm. Cannot rule out inferior infarct. Inferior T wave inversion. Medications Administered Current Inpatient Medications Aspirin (Aspirin 81 Mg Ectab) 81 mg PO DAILY [facility] Stop: 04/11/23 08:59 Last Admin: 03/13/23 08:04 Dose: 81 mg Atorvastatin Calcium (Atorvastatin 40 Mg Tab) 40 mg PO HS [facility] Stop: 04/11/23 20:59 Last Admin: 03/12/23 20:28 Dose: 40 mg Clopidogrel Bisulfate (Clopidogrel Bisulfate 75 Mg Tab) 75 mg PO QAM [facility] Stop: 04/12/23 08:59 Last Admin: 03/13/23 10:05 Dose: 75 mg Heparin Sodium (Porcine) (Heparin Sod 5,000 Unit/0.5 Ml Vial) 5,000 units SQ Q12 [facility] Stop: 04/11/23 20:59 Last Admin: 03/13/23 10:06 Dose: 5,000 units Hydralazine HCl (Hydralazine 10 Mg Tab) 10 mg PO TID PRN PRN Reason: Hypertension Stop: 04/11/23 03:22 Last Admin: 03/12/23 09:22 Dose: 10 mg Lisinopril (Lisinopril 5 Mg Tab) 5 mg PO QAM [facility] Stop: 04/12/23 08:59 Last Admin: 03/13/23 08:03 Dose: 5 mg Metoprolol Tartrate (Metoprolol Tartrate 25 Mg Tab) 25 mg PO BID [facility] Stop: 04/11/23 12:29 Last Admin: 03/13/23 08:03 Dose: 25 mg Ondansetron HCl (Ondansetron Inj 2 Mg/Ml 2 Ml Vial) 4 mg IV Q6H PRN PRN Reason: Nausea Stop: 04/11/23 03:22 Prednisone (Prednisone 20 Mg Tab) 40 mg PO DAILY [facility]; Taper Stop: 03/22/23 08:59 Last Admin: 03/13/23 08:04 Dose: 40 mg PG Care Time/CCT Total # of Minutes Spent Total Time Spent with Patient: Total time spent is greater than 50% in coordination of care (as documented) at patient's floor/unit and/or counseling patient: Coding Level of Care Code 69766 SUB INP/OBS CARE 3/50MIN Diagnoses Non-ST elevation MO (NSTEMI) I21.4 CAD (coronary artery disease) I25.10 S/P coronary artery stent placement Z95.5 Carotid atherosclerosis I65.29 Hypertensive urgency I16.0 Hyperlipidemia E78.5 Pulmonary hypertension I27.20 Mitral regurgitation I34.0
--- NOTE | 2023-03-13 10:59 | Hospitalist Progress Note ---
Date of Service March 13, 2023 Assessment & Plan (1) Non-ST elevation [place] (NSTEMI): Plan: 77yo female with history of HLP presenting with 2 episodes of chest pain, elevated troponin 122-->255. No acute ischemic changes on EKG. Patient hypertensive on arrival. Concern for NSTEMI. -s/p cath and KELLY x2 -Appreciate cardiology recs -Continue Plavix and ASA and statin (2) Hypertensive urgency: Plan: BP is under better control Lisinopril has been initiated, per cardiology, increase to 10mg daily tomorrow Continue Hydralazine PO (3) Hyperlipidemia: Plan: Chronic. Stable -Continue Statin, stop zetia (4) Sinus infection: Plan: Continue Doxycycline to completion - 100mg po BID - last day 03/12/22 Continue steroid taper to completion - she has 10mg po daily x 5 days (03/12/23 - 03/16/23) followed by 5mg po daily x 5 days then DC Plan continue to monitor BP, hopefully d/c in the next 24 -48 hrs Admission and Anticipated Discharge Date Admission Date: March 12, 2023 Subjective patient seen and examined, stable post cath and stent Review of Systems Review of Systems: All systems reviewed are negative, apart from the ones contained in the history. Physical Exam Physical Exam: The patient is awake, alert and oriented 3, well developed and well nourished, normocephalic and atraumatic, lying in bed and in no acute distress. HEENT--PERRL, EOMI, mucous membranes and oropharynx mildly dry Neck--supple. No JVD. No bruits. Thyroid normal, trachea midline, no adenopathy. Heart--normal S1 and S2. No murmurs, rubs or gallops. Lungs--clear bilaterally, no respiratory distress, no accessory muscle use. Abdomen--normal bowel sounds and soft. Mild epigastric and left sided abdominal pain Extremities--no cyanosis or clubbing. No edema. Dermatologic--normal skin turgor, normal color, no abnormal lymph nodes, no rash. Neurologic--cranial nerves II through XII grossly intact. Rheumatologic--normal range of motion. Psychiatric--normal affect. Results & Data Results & Data Vital Signs (Past 12 Hours) Vital Signs Temp Pulse Pulse Resp BP Pulse Ox O2 Del Method 03/13/23 07:35 97.5 F L 66 17 169/89 H 93 Room Air 03/13/23 07:28 57 L 03/13/23 03:23 97.9 F 59 L 18 151/64 H 96 Room Air 03/12/23 23:25 97.9 F 64 17 145/75 H 96 Room Air 03/12/23 23:00 55 L PG Care Time/CCT Total # of Minutes Spent Total Time Spent with Patient: Total time spent is greater than 50% in coordination of care (as documented) at patient's floor/unit and/or counseling patient: Coding Level of Care Code 54888 SUB INP/OBS CARE 2/35MIN Diagnoses Non-ST elevation AK (NSTEMI) I21.4 Hypertensive urgency I16.0 Hyperlipidemia E78.5 Sinus infection J32.9 Time Spent (min) 35
--- NOTE | 2023-03-13 13:21 | Discharge Summary ---
Date of Service March 13, 2023 Admission HPI Per Admitting Provider Narda Jacobo is a pleasant 77yo female with history of HLP and GERD presenting with chest pain. Patient had been in her usual state of health until this afternoon around 16:00 - she was watering dee at the [employer] when she developed bandlike discomfort across the upper part of her chest. She described the sensation as heaviness. Non-pleuritic, non-positional, did not seem to be exertional. She denies nausea, vomiting, shortness of breath, diaphoresis or dizziness. She sat down and the pain resolved in approximately 10 minutes. She went home and was feeling ok for a while. Around 18:45 she had dinner (baked potato and carrots) then had a recurrence of the pain. She reports that the pain was more severe and persistent this time. She has had sinusitis - was recently started on Doxycycline and Prednisone taper. In the ER she is afebrile, hypertensive Principal Diagnosis NSTEMI Discharge Exam The patient is awake, alert and oriented 3, well developed and well nourished, normocephalic and atraumatic, lying in bed and in no acute distress. HEENT--PERRL, EOMI, mucous membranes and oropharynx mildly dry Neck--supple. No JVD. No bruits. Thyroid normal, trachea midline, no adenopathy. Heart--normal S1 and S2. No murmurs, rubs or gallops. Lungs--clear bilaterally, no respiratory distress, no accessory muscle use. Abdomen--normal bowel sounds and soft. Mild epigastric and left sided abdominal pain Extremities--no cyanosis or clubbing. No edema. Dermatologic--normal skin turgor, normal color, no abnormal lymph nodes, no rash. Neurologic--cranial nerves II through XII grossly intact. Rheumatologic--normal range of motion. Psychiatric--normal affect. Discharge Data Allergies Allergy/AdvReac Type Severity Reaction Status Date / Time Sresacs-WMG-ZgD Reductase AdvReac Severe Joint Pain Verified 03/06/23 12:51 Inhibitor Consultations 03/11/23 23:18 ED Decision to Admit Stat 03/12/23 00:18 Consult Cardiology Routine Procedures Performed Operation Date: 03/12/23 12:30 Actual Procedures p Cineradiography w/Routine Exam - Anatoliy Valderrama MD p Cath, Left with Cors and Vent - Anatoliy Valderrama MD s Drug Eluting Stent SGl Vessel - Rashawn Oconnor MD Ordered Studies 03/12/23 12:33 CL Cath Imgs for PACS use only Routine Hospital Course (1) Non-ST elevation [place] (NSTEMI): 77yo female with history of HLP presenting with 2 episodes of chest pain, elevated troponin 122-->255. No acute ischemic changes on EKG. Patient hypertensive on arrival. Concern for NSTEMI. -s/p cath and KELLY x2 -Appreciate cardiology recs -Continue Plavix and ASA and statin (2) Hypertensive urgency: BP is under better control Lisinopril has been initiated, per cardiology, increase to 10mg daily tomorrow Continue Hydralazine PO (3) Hyperlipidemia: Chronic. Stable -Continue Statin, stop zetia (4) Sinus infection: Continue Doxycycline to completion - 100mg po BID - last day 03/12/22 Continue steroid taper to completion - she has 10mg po daily x 5 days (03/12/23 - 03/16/23) followed by 5mg po daily x 5 days then DC Plan continue to monitor BP, hopefully d/c in the next 24 -48 hrs Total Time Total Time Spent Total Time Spent (In Minutes): 35 Discharge Plan Discharge Items Patient Disposition: Home - Self-Care Reason For Visit: CHEST PAIN, ELEVATED TROPONIN Discharge Diagnosis: NSTEMI Activity: Resume your previous activity Non-emergency contact: Primary Care Provider and Tinner Helper Call non-emergency contact if: you have any medication questions Follow-up/Referrals: Eleanor Bledsoe MD [Primary Care Provider] - Diet: Heart Healthy Addtl Attending Provider Instructions: ACTIVITY RECOMMENDATIONS: Excess manipulation of the wrist should be avoided for the next 24-48 hours. * No lifting over 2 pounds (approximately a 1/2 gallon of milk) with the utilized arm for 24 hours. * No strenuous activity such as bowling or tennis for 3 days. * Keep the site of the procedure covered with a bandage for 24 hours. *You may shower the day after the procedure. Do not take a tub bath or submerge the puncture site in water for the next 3 days. *Do not operate any motorized equipment for 3 days. SPECIAL CARE INSTRUCTIONS: The site may be slightly bruised and sore following your procedure. Should any of the following occur, contact the Dr. who performed your procedure. 1. Redness/inflammation, swelling, chills, or fever, or colored drainage at procedure site within 3-7 days after your procedure. 2. Coldness, discoloration, ongoing numbness, severe pain, or swelling. Expect mild tingling of hand and tenderness at the puncture site for up to three days. If this persists beyond three days, or other symptoms develop, notify the Dr. who performed your procedure. BLEEDING: If the procedure site on your wrist begins to bleed, do not panic 1. Place 1 or 2 fingers firmly just slightly above the insertion site to stop the bleeding. You may be able to feel your pulse as you hold pressure. 2. Lift your finger after 5 minutes to see if the bleeding has stopped. 3. Once the bleeding has stopped, gently wipe the wrist area clean with a bandage. * If the bleeding from your wrist does not stop after 10 minutes, or if there is a large amount of bleeding or spurting, call 911 (do not drive yourself to the hospital). SKIN IRRITATION: * You may experience some redness and/or swelling in the area where radiation was administered. If any skin irritation occurs, please contact your family physician. FOLLOW UP VISIT: Keep any scheduled doctor appointments. Pending Studies at Discharge: No Stand-Alone Forms: My [facility], Smoking Cessation Medications and DC Order Prescriptions: New atorvastatin 40 mg Tablet 40 mg PO HS Qty: 90 3RF clopidogrel 75 mg Tablet 75 mg PO QAM Qty: 90 3RF aspirin 81 mg Tablet,Delayed Release (Dr/Ec) 81 mg PO DAILY Qty: 90 3RF lisinopril [Zestril] 5 mg Tablet 5 mg PO QAM Qty: 90 3RF metoprolol tartrate 25 mg Tablet 25 mg PO BID Qty: 180 3RF nitroglycerin [Nitrostat] 0.4 mg tablet, sublingual 0.4 mg sublingual Q5M PRN (Reason: chest pain) Qty: 25 2RF Rx Instructions: Take 1 tab sublingual every 5 min as needed for chest pain. Max 3 doses per episode. Call 911 if chest pain persists after 1st dose. Continued prednisone 20 mg tablet See Rx Instructions PO .COMPLEX Qty: 30 0RF Rx Instructions: 3 tabs PO daily X 5 days, then 2 tabs PO daily X 5 days, then 1 tab PO daily X 5 days, then stop. fexofenadine [Allergy Relief (fexofenadine)] 180 mg tablet 180 mg PO DAILY PRN (Reason: seasonal allergies) cholecalciferol (vitamin D3) 125 mcg (5,000 unit) capsule 125 mcg PO QAM ascorbate calcium (vitamin C) 500 mg tablet 500 mg PO QAM Discontinued doxycycline hyclate 100 mg tablet 100 mg PO BID 7 Days Qty: 14 0RF ezetimibe [Zetia] 10 mg tablet 10 mg PO QAM Discharge Orders: Discharge Order (Routine); Ordered 03/13/23 Ordered By: Erika Last/Other Patient Handouts: Prediabetes, 5 Steps for Eating Healthier Admission Data Admit Date/Time: 03/12/23 00:18 Attending Provider: Erika Natarajan Admit Provider: Nevaeh Madison Primary Care Provider: Eleanor Bledsoe Other Providers: Nevaeh Madison; Anatoliy Valderrama Coding Level of Care Code 39252 INP/OBS DISCH >30 MIN Diagnoses Non-ST elevation UT (NSTEMI) I21.4 Hypertensive urgency I16.0 Hyperlipidemia E78.5 Sinus infection J32.9 Time Spent (min) 35
--- NOTE | 2023-03-14 21:28 | Electrocardiogram Report ---
Test Reason : Blood Pressure : / mmHG Vent. Rate : 079 BPM Atrial Rate : 079 BPM P-R Int : 148 ms QRS Dur : 068 ms QT Int : 340 ms P-R-T Axes : 067 093 072 degrees QTc Int : 389 ms Normal sinus rhythm Rightward axis Nonspecific ST abnormality Abnormal ECG When compared with ECG of 25-OCT-2022 14:33, No significant change was found Confirmed by Anatoliy Valderrama ([id number]) on 03/14/2023 9:27:34 PM Referred By: REFERRED SELF Confirmed By:Anatoliy Valderrama
--- NOTE | 2023-03-15 05:55 | Electrocardiogram Report ---
Test Reason : Blood Pressure : / mmHG Vent. Rate : 062 BPM Atrial Rate : 062 BPM P-R Int : 128 ms QRS Dur : 070 ms QT Int : 410 ms P-R-T Axes : 012 -06 -06 degrees QTc Int : 416 ms Normal sinus rhythm Low voltage QRS T wave abnormality, consider inferior ischemia When compared with ECG of 11-MAR-2023 22:09, Questionable change in QRS axis ST no longer depressed in Lateral leads T wave inversion now evident in Inferior leads Confirmed by Anatoliy Valderrama ([id number]) on 03/15/2023 5:54:58 AM Referred By: REFERRED SELF Confirmed By:Anatoliy Valderrama
== END 2023-03-13 15:45 | disposition home or self-care (01) | DRG 322 ==
LOC: ED 21:54 → OBSVTOIN 03-12 00:18 → SUATTDRO 03-12 00:18 → INTOOBSV 03-12 00:18 → EDINP 03-12 00:18 → 4W 03-12 15:00